=== PATIENT | male | born 1950 | race American Indian/Alaskan Native ===

== ENCOUNTER → 2017-04-27 | Outpatient (CLI) | payer OTHER ==
[~2017-04-27] MED LIST: AMOX500 PO; CEPH500 PO; HYDACE5 PO; NAPR500 PO; PRED20 PO; RXHYDACE PO; [UNRECOGNIZED DRUG - OTHER]
[2017-04-27 12:47] LABS: BASOPHILS ABSOLUTE AUTO 0.02 K/mm3 (0.00-0.23); BASOPHILS PERCENT AUTO 0 % (0-2); EOSINOPHILS ABSOLUTE AUTO 0.11 K/mm3 (0.00-0.68); EOSINOPHILS PERCENT AUTO 2 % (0-6); Hemoglobin 16.3 g/dL (13.5-17.5); IMMATURE GRAN ABSOLUTE AUTO 0.01 K/mm3 (0.00-0.10); IMMATURE GRAN PERCENT AUTO 0 % (0-1); LYMPHOCYTES ABSOLUTE AUTO 2.02 K/mm3 (0.84-5.20); LYMPHOCYTES PERCENT AUTO 32 % (21-46); MONOCYTES ABSOLUTE AUTO 0.96 K/mm3 (0.16-1.47); MONOCYTES PERCENT AUTO 15 % (4-13); Mean Corpuscular HGB 29.7 pg (26.0-34.0); Mean Corpuscular HGB Conc 34.7 g/dL (31.5-36.5); Mean Corpuscular Volume 86 fL (80-100); Mean Platelet Volume 11.8 fL (9.1-12.4); NEUTROPHILS ABSOLUTE AUTO 3.21 K/mm3 (1.96-9.15); NEUTROPHILS PERCENT AUTO 51 % (41-73); Platelet Count 265 K/mm3 (150-400); RDW Coefficient Variation 13.2 % (11.7-14.2); RDW Standard Deviation 41.2 fL (35.1-46.3); Red Blood Cell Count 5.48 M/mm3 (4.30-5.90); White Blood Cell Count 6.33 K/mm3 (4.00-11.30)
[2017-04-27 13:05] LABS: Alanine Aminotransfer (ALT/SGP 34 U/L (12-78); Alk Phos 83 U/L (40-126); Anion Gap 9 mmol/L (6-16); Aspartate Aminotrans (AST/SGOT 33 U/L (12-37); Bilirubin, Total 0.4 mg/dL (0.1-1.0); Blood Urea Nitrogen 16 mg/dL (8-24); Bun/Creatinine Ratio 10.9 (12.0-20.0); CO2, Blood 26 mmol/L (21-32); CPK Creatine Kinase 139 U/L (39-308); Calcium, Blood 9.5 mg/dL (8.5-10.1); Chloride, Blood 100 mmol/L (98-108); Creatinine, Blood 1.47 mg/dL (0.60-1.20); Free Thyroxine 0.93 ng/dL (0.70-1.60); Glomerular Filtration Rate 48 (60-); Glucose, Blood 101 mg/dL (70-99); Potassium, Blood 4.9 mmol/L (3.5-5.5); Sodium, Blood 135 mmol/L (136-145)
[2017-04-27 13:10] LABS: Troponin I <0.017 ng/mL (0.000-0.040)
== END | disposition home or self-care (01) ==
LOC: LAB EV 12:38
PROVIDERS: General Practice
DX: R55 Syncope and collapse (principal); R53.81 Other malaise
CPT/HCPCS: 80053; 82550; 84439; 84443; 84484; 85025

== ENCOUNTER 2019-12-11 01:29 | Emergency (ER) | payer OTHER ==
[~2019-12-11] VITALS: Ht 177.8 cm; Wt 76.2 kg
[2019-12-11] MEDS ORDERED: IMBRUVICA420 MG PO (01:44)
[2019-12-11 02:00] LABS: BASOPHILS ABSOLUTE AUTO 0.39 K/mm3 (0.00-0.23); BASOPHILS PERCENT AUTO 1 % (0-2); EOSINOPHILS ABSOLUTE AUTO 0.22 K/mm3 (0.00-0.68); EOSINOPHILS PERCENT AUTO 1 % (0-6); Hematocrit 46.1 % (37.0-53.0); Hemoglobin 14.7 g/dL (13.5-17.5); IMMATURE GRAN ABSOLUTE AUTO 0.07 K/mm3 (0.00-0.10); IMMATURE GRAN PERCENT AUTO 0 % (0-1); LYMPHOCYTES ABSOLUTE AUTO 37.23 K/mm3 (0.84-5.20); LYMPHOCYTES PERCENT AUTO 83 % (21-46); MONOCYTES ABSOLUTE AUTO 2.78 K/mm3 (0.16-1.47); MONOCYTES PERCENT AUTO 6 % (4-13); Mean Corpuscular HGB 29.7 pg (26.0-34.0); Mean Corpuscular HGB Conc 31.9 g/dL (31.5-36.5); Mean Corpuscular Volume 93 fL (80-100); NEUTROPHILS ABSOLUTE AUTO 4.14 K/mm3 (1.96-9.15); NEUTROPHILS PERCENT AUTO 9 % (41-73); Platelet Count 225 K/mm3 (150-400); RDW Coefficient Variation 13.5 % (11.7-14.2); RDW Standard Deviation 45.7 fL (35.1-46.3); Red Blood Cell Count 4.95 M/mm3 (4.30-5.90); White Blood Cell Count 44.83 K/mm3 (4.00-11.30)
[2019-12-11 02:12] LABS: Alanine Aminotransfer (ALT/SGP 29 U/L (12-78); Albumin, Blood 4.3 g/dL (3.4-5.0); Albumin/Globulin Ratio 1.4 (0.8-1.8); Alk Phos 91 U/L (50-136); Anion Gap 4 mmol/L (6-16); Aspartate Aminotrans (AST/SGOT 22 U/L (12-37); Bilirubin, Total 0.5 mg/dL (0.1-1.0); Blood Urea Nitrogen 16 mg/dL (8-24); CO2, Blood 30 mmol/L (21-32); Calcium, Blood 8.6 mg/dL (8.5-10.1); Chloride, Blood 106 mmol/L (98-108); Creatinine, Blood 1.23 mg/dL (0.60-1.20); Glomerular Filtration Rate >60 (60-); Glucose, Blood 93 mg/dL (70-99); Potassium, Blood 4.3 mmol/L (3.5-5.5); Sodium, Blood 140 mmol/L (136-145); Total Protein, Blood 7.3 g/dL (6.4-8.2); Troponin I <0.015 ng/mL (0.000-0.040)
== END 2019-12-11 02:54 | disposition home or self-care (01) ==
LOC: ER 01:29
PROVIDERS: Emergency Medicine
DX: R07.9 Chest pain, unspecified (principal); Z88.1 Allergy status to other antibiotic agents; Z91.041 Radiographic dye allergy status
CPT/HCPCS: 36415; 80053; 84484; 85025; 93005; 93010; 96374; 99283-25; J1885

== ENCOUNTER 2020-04-26 05:57 | Day surgery (SDC) | payer OTHER ==
[~2020-04-26] VITALS: Ht 160 cm; Wt 79.8 kg
[~2020-04-26 05:57] MED LIST changes: +ACET325 PO; +ASPI325 PO; +ATOR10 PO; +IMBRUVICA420 MG PO; +OXYC5 PO; +PRAV20 PO
[2020-04-26] MEDS ORDERED: ATOR20 PO (06:36)
--- NOTE | 2020-04-26 08:00 | NUR ---
PT BACK TO RECOVERY ROOM VIA RECLINER AFTER PROCEDCURE. DENIES PAIN OR NEEDS. RIGHT WRIST WITH TR BAND AND SPLINT IN PLACE. VSS, PT IS AWAKE AND ORIENTED POST SEDATION. CALL LIGHT IN REACH.
--- NOTE | 2020-04-26 09:30 | NUR ---
WHEN ATTEMPTING TO TAKE AIR OUT OF TR BAND, SLIGHT BLEEDING NOTED AFTER TAKING 2 CC'S OF AIR OUT. TR BAND REINFLATED, WILL ATTEMPT TO DEFLATE AGAIN IN 15-30 MINUTES.
--- NOTE | 2020-04-26 10:07 | NUR ---
RIGHT RADIAL TR BAND HAS BEEN FULLY DEFLATED. NO BLEEDING OR SWELLING AT SITE.
--- NOTE | 2020-04-26 10:45 | NUR ---
IV DC'D, CATH INTACT. PT GIVEN DC INSTRUCTIONS, VERBALIZED UNDERSTANDING. DENIES PAIN OR NEEDS, OUT TO CAR VIA WHEELCHAIR. RIGHT WRIST SITE SOFT, NON-TENDER, NO BLEEDING OR SWELLING AT TIME OF DISCHARGE
== END 2020-04-26 10:45 | disposition home or self-care (01) ==
LOC: MHTC 05:57
DX: I25.118 Atherosclerotic heart disease of native coronary artery with other forms of angina pectoris (principal); I49.3 Ventricular premature depolarization; K21.9 Gastro-esophageal reflux disease without esophagitis; E66.9 Obesity, unspecified; I12.9 Hypertensive chronic kidney disease with stage 1 through stage 4 chronic kidney disease, or unspecified chronic kidney disease; N18.9 Chronic kidney disease, unspecified; Z79.01 Long term (current) use of anticoagulants; Z68.31 Body mass index [BMI] 31.0-31.9, adult; Z85.6 Personal history of leukemia; Z86.73 Personal history of transient ischemic attack (TIA), and cerebral infarction without residual deficits
CPT/HCPCS: 76937; 93458; 99152; C1769; C1894; J1200; J1644; J1720; J2250; J3010; J7030; J7050; Q9967

== ENCOUNTER → 2021-04-11 | Outpatient (CLI) | payer OTHER ==
[~2021-04-11] MED LIST changes: +ATOR20 PO
[2021-04-11 11:23] LABS: Hematocrit 36.7 % (37.0-53.0); Hemoglobin 12.1 g/dL (13.5-17.5); Mean Corpuscular HGB 29.6 pg (26.0-34.0); Mean Corpuscular Volume 90 fL (80-100); Platelet Count 302 K/mm3 (150-400); RDW Coefficient Variation 15.2 % (11.7-14.2); RDW Standard Deviation 49.5 fL (35.1-46.3); Red Blood Cell Count 4.09 M/mm3 (4.30-5.90)
[2021-04-11 11:38] LABS: Albumin, Blood 2.7 g/dL (3.4-5.0); Bilirubin, Total 0.6 mg/dL (0.1-1.0); Bun/Creatinine Ratio 19.6 (12.0-20.0); Calcium, Blood 8.4 mg/dL (8.5-10.1); Creatinine, Blood 1.38 mg/dL (0.60-1.20); Globulin, Blood 2.8 g/dL (2.2-4.0); Potassium, Blood 5.7 mmol/L (3.5-5.5); Total Protein, Blood 5.5 g/dL (6.4-8.2)
[2021-04-11 11:45] LABS: BAND PERCENT MAN 23 % (0-8); BASOPHILS PERCENT MAN 0 % (0-2); EOSINOPHILS PERCENT MAN 0 % (0-6); LYMPHOCYTES % ATYPICAL MANUAL 1 % (0-0); LYMPHOCYTES ABSOLUTE MAN 16.19 K/mm3 (0.84-5.20); LYMPHOCYTES PERCENT MAN 56 % (21-46); MONOCYTES ABSOLUTE MAN 0.28 K/mm3 (0.16-1.47); MONOCYTES PERCENT MAN 1 % (4-13); NEUTROPHILS ABSOLUTE MAN 11.93 K/mm3 (1.96-9.15); SEG NEUTROPHILS PERCENT MAN 19 % (41-73); TOTAL CELLS COUNTED 100
[2021-04-11 11:47] LABS: White Blood Cell Count 28.42 K/mm3 (4.00-11.30)
== END ==
LOC: LAB SHORT 11:20
PROVIDERS: Family Medicine
DX: U07.1 COVID-19 (principal); J12.82 Pneumonia due to coronavirus disease 2019
CPT/HCPCS: 80053; 85025

== ENCOUNTER 2021-04-14 11:43 | Inpatient (IN) | payer MEDICARE, OTHER ==
[~2021-04-14] VITALS: Ht 167.6 cm; Wt 61.7 kg
[~2021-04-14 11:43] MED LIST changes: -ALBU2.5V5; -BUDESONIDE EC3 M5 PO; -LEVOFLOXACIN750 MG
[2021-04-14] MEDS ORDERED: ALBU2.5V5 INH (15:47)
[2021-04-14] MEDS ORDERED: LEVOFLOXACIN750 MG (15:48)
[2021-04-14] MEDS ORDERED: BUDESONIDE EC3 M5 PO (15:48)
[2021-04-14] MEDS ORDERED: PRED20 PO (15:48)
--- NOTE | 2021-04-14 18:22 | NUR ---
PATIENT ADMITTED FOR SOB/PNEUMONIA. AOX4, REPORTS INFREQUENT PRODUCTIVE COUGH, 2L NC O2. FINE CRACKLES AT LUNG BASES. NO SOB/RESPIRATORY DISTRESS NOTED. VITAL STABLE. IV FLUIDS INFUSING, IV ABX STARTED.
[2021-04-15 05:13] LABS: Hematocrit 32.2 % (37.0-53.0); Hemoglobin 10.7 g/dL (13.5-17.5); Mean Corpuscular HGB 29.2 pg (26.0-34.0); Mean Corpuscular HGB Conc 33.2 g/dL (31.5-36.5); Mean Corpuscular Volume 88 fL (80-100); Mean Platelet Volume 10.6 fL (9.1-12.4); Platelet Count 392 K/mm3 (150-400); RDW Coefficient Variation 14.8 % (11.7-14.2); RDW Standard Deviation 48.2 fL (35.1-46.3); Red Blood Cell Count 3.66 M/mm3 (4.30-5.90); White Blood Cell Count 23.35 K/mm3 (4.00-11.30)
[2021-04-15 05:34] LABS: BAND PERCENT MAN 9 % (0-8); BASOPHILS PERCENT MAN 0 % (0-2); EOSINOPHILS PERCENT MAN 0 % (0-6); LYMPHOCYTES ABSOLUTE MAN 8.63 K/mm3 (0.84-5.20); LYMPHOCYTES PERCENT MAN 37 % (21-46); MONOCYTES PERCENT MAN 0 % (4-13); NEUTROPHILS ABSOLUTE MAN 14.71 K/mm3 (1.96-9.15); SEG NEUTROPHILS PERCENT MAN 54 % (41-73); TOTAL CELLS COUNTED 100
[2021-04-15 05:46] LABS: Albumin, Blood 1.7 g/dL (3.4-5.0); Albumin/Globulin Ratio 0.4 (0.8-1.8); Bilirubin, Total 1.6 mg/dL (0.1-1.0); Bun/Creatinine Ratio 24.6 (12.0-20.0); Calcium, Blood 8.6 mg/dL (8.5-10.1); Creatinine, Blood 1.38 mg/dL (0.60-1.20); Globulin, Blood 4.3 g/dL (2.2-4.0); Magnesium, Blood 2.3 mg/dL (1.6-2.4); Phosphorus, Blood 5.5 mg/dL (2.5-4.9); Potassium, Blood 4.9 mmol/L (3.5-5.5)
[2021-04-15 15:25] LABS: Influenza A, PCR NEGATIVE (NEGATIVE); Influenza B, PCR NEGATIVE (NEGATIVE); Resp Syncytial Virus, PCR NEGATIVE (NEGATIVE)
[2021-04-15 15:34] LABS: SARS-Cov-2 (COVID-19) PCR, MMC POSITIVE (NEGATIVE)
--- NOTE | 2021-04-16 03:45 | NUR ---
SHIFT SUMMARY RT IN FOR BREATHING TX X ONE. SOLU-MEDROL GIVEN PER EMAR. AXOX 4 AND INDEPENDENT IN ROOM. SOB W/EXERTION. ON 6L O2 HF STATING 96% CONTINUOUS PULSE OXIMETRY. REPORTED BACK PAIN X ONE AND IV FENTANYL 50 MCG GIVEN. PEREZ X ONE AND TYLENOL 650 MG GIVEN PER EMAR. PIV REMAINS INTACT. LR FINISHED INFUSING X ONE. BUILDING ENERGY CONSULTANT REPORTS NSR 88. VSS/AFEBRILE. DENIES CHEST PAIN AND N/V. CALL LIGHT IN REACH. BED IN LOWEST POSITION. WILL CONTINUE TO MONITOR UNTIL DAY SHIFT NURSE ASSUMES CARE.
[2021-04-16 04:47] LABS: Hematocrit 29.6 % (37.0-53.0); Hemoglobin 9.8 g/dL (13.5-17.5); Mean Corpuscular HGB 29.3 pg (26.0-34.0); Mean Corpuscular HGB Conc 33.1 g/dL (31.5-36.5); Mean Corpuscular Volume 88 fL (80-100); Mean Platelet Volume 10.9 fL (9.1-12.4); Platelet Count 366 K/mm3 (150-400); RDW Standard Deviation 48.5 fL (35.1-46.3); Red Blood Cell Count 3.35 M/mm3 (4.30-5.90); White Blood Cell Count 20.06 K/mm3 (4.00-11.30)
[2021-04-16 05:39] LABS: BAND PERCENT MAN 17 % (0-8); BASOPHILS PERCENT MAN 0 % (0-2); EOSINOPHILS PERCENT MAN 0 % (0-6); LYMPHOCYTES ABSOLUTE MAN 6.01 K/mm3 (0.84-5.20); LYMPHOCYTES PERCENT MAN 30 % (21-46); MONOCYTES PERCENT MAN 2 % (4-13); NEUTROPHILS ABSOLUTE MAN 13.64 K/mm3 (1.96-9.15); SEG NEUTROPHILS PERCENT MAN 51 % (41-73); TOTAL CELLS COUNTED 100
--- NOTE | 2021-04-17 03:06 | NUR ---
SHIFT SUMMARY PATIENT HAD NO ACUTE CHANGES OBSERVED. AXOX 4 AND INDEPENDENT IN ROOM, SOB W/EXERTION. RT PLACED ON 7L O2 HF UP FROM 6L HF STATING 90% ON CONTINUOUS PULSE OXIMETRY. PIV REMAINS INTACT. IV ABX INFUSED. HOISTMAN REPORTS ST 111. REPORTED GENERAL PAIN AND OXYCODONE 5 MG GIVEN X ONE. VSS/AFEBRILE. PATIENT ABLE TO REST T/O SHIFT. CALL LIGHT IN REACH. BED IN LOWEST POSITION. WILL CONTINUE TO MONITOR UNTIL DAY SHIFT NURSE ASSUMES CARE.
[2021-04-17 05:04] LABS: Hematocrit 32.3 % (37.0-53.0); Hemoglobin 10.6 g/dL (13.5-17.5); Mean Corpuscular HGB 28.8 pg (26.0-34.0); Mean Corpuscular HGB Conc 32.8 g/dL (31.5-36.5); Mean Corpuscular Volume 88 fL (80-100); Platelet Count 416 K/mm3 (150-400); RDW Standard Deviation 48.1 fL (35.1-46.3); Red Blood Cell Count 3.68 M/mm3 (4.30-5.90)
[2021-04-17 05:46] LABS: Albumin, Blood 1.5 g/dL (3.4-5.0); Anion Gap 6 mmol/L (6-16); Blood Urea Nitrogen 46 mg/dL (8-24); Bun/Creatinine Ratio 30.5 (12.0-20.0); CO2, Blood 22 mmol/L (21-32); Calcium, Blood 8.8 mg/dL (8.5-10.1); Chloride, Blood 102 mmol/L (98-108); Creatinine, Blood 1.51 mg/dL (0.60-1.20); Glomerular Filtration Rate 46 (60-); Glucose, Blood 113 mg/dL (70-99); Phosphorus, Blood 4.9 mg/dL (2.5-4.9); Potassium, Blood 5.8 mmol/L (3.5-5.5); Sodium, Blood 130 mmol/L (136-145)
[2021-04-17 05:53] LABS: BAND PERCENT MAN 29 % (0-8); BASOPHILS ABSOLUTE MAN 0.21 K/mm3 (0.00-0.23); BASOPHILS PERCENT MAN 1 % (0-2); EOSINOPHILS PERCENT MAN 0 % (0-6); LYMPHOCYTES ABSOLUTE MAN 6.04 K/mm3 (0.84-5.20); LYMPHOCYTES PERCENT MAN 28 % (21-46); MONOCYTES ABSOLUTE MAN 0.21 K/mm3 (0.16-1.47); MONOCYTES PERCENT MAN 1 % (4-13); MYELOCYTE ABSOLUTE MAN 0.21 K/mm3 (0.00-0.00); MYELOCYTE PERCENT MAN 1 % (0-0); SEG NEUTROPHILS PERCENT MAN 40 % (41-73); TOTAL CELLS COUNTED 100
--- NOTE | 2021-04-17 13:47 | NUR ---
Patient arrived via med bed and on tele. He has HF at 40L 62% and sats mid 90%. He is alert and oriented and is able to communicate his needs. He has urinal at bedside and uses appropriately. He states back pain and will medicate per MAR. Dr Chan has been in room and talked with patient.
--- NOTE | 2021-04-17 15:45 | NUR ---
Patient has been resting on 40L 62% and sats M idto low 90%'s. He stated pain reduced to 3/10 since medicated per APR.
--- NOTE | 2021-04-17 17:25 | NUR ---
Patient resting with HF NC at 40L 62% and sats 94%. He has 20ga LIS infusing D5 1/2 NS at 100 ml/hr. Held dinner until awakens. No significant changes with patient.
[2021-04-18 03:31] LABS: BASOPHILS PERCENT AUTO 1 % (0-2); Hematocrit 30.1 % (37.0-53.0); LYMPHOCYTES ABSOLUTE AUTO 3.41 K/mm3 (0.84-5.20); LYMPHOCYTES PERCENT AUTO 23 % (21-46); MONOCYTES ABSOLUTE AUTO 0.19 K/mm3 (0.16-1.47); MONOCYTES PERCENT AUTO 1 % (4-13); Mean Corpuscular HGB 29.5 pg (26.0-34.0); Mean Corpuscular HGB Conc 33.2 g/dL (31.5-36.5); Mean Corpuscular Volume 89 fL (80-100); Platelet Count 382 K/mm3 (150-400); RDW Coefficient Variation 15.5 % (11.7-14.2); RDW Standard Deviation 50.1 fL (35.1-46.3); Red Blood Cell Count 3.39 M/mm3 (4.30-5.90); White Blood Cell Count 14.56 K/mm3 (4.00-11.30)
[2021-04-18 03:34] LABS: EOSINOPHILS PERCENT AUTO 0 % (0-6); IMMATURE GRAN ABSOLUTE AUTO 0.06 K/mm3 (0.00-0.10); IMMATURE GRAN PERCENT AUTO 0 % (0-1); NEUTROPHILS PERCENT AUTO 74 % (41-73)
[2021-04-18 03:55] LABS: Albumin, Blood 1.3 g/dL (3.4-5.0); Anion Gap 7 mmol/L (6-16); Blood Urea Nitrogen 50 mg/dL (8-24); Bun/Creatinine Ratio 33.8 (12.0-20.0); CO2, Blood 22 mmol/L (21-32); Chloride, Blood 102 mmol/L (98-108); Creatinine, Blood 1.48 mg/dL (0.60-1.20); Glomerular Filtration Rate 47 (60-); Glucose, Blood 151 mg/dL (70-99); Phosphorus, Blood 6.6 mg/dL (2.5-4.9); Potassium, Blood 5.7 mmol/L (3.5-5.5); Sodium, Blood 131 mmol/L (136-145)
--- NOTE | 2021-04-18 06:19 | NUR ---
On airvo overnight. Desaturation with activity to the mid 80's, slow to recover. O2 requirements increased to 45L 70% after spontaneous desaturation while sleeping. Febile through the night; see flowsheet. Medicated with tylenol PRN. Pt cooperative and very restful through the shift.
--- NOTE | 2021-04-18 08:03 | NUR ---
CARE ASSUMED OF PT AT 0700. WITHOUT EXERTIONS PT DESATURATED IN TO LOW 70%. RT AT BEDSIDE. BIPAP BEING PLACED. PT STATES HE DOES NOT WANT TO BE INTUBATED. PT'S BREATHING IS LABORED. RESP 30-40'S. PT CALM, DOES STATE HE FEELS SOB. PT'S TO BE UPDATED PER PT. 11/19 75%. PT'S SATS CAME UP OVER 90% ALMOST IMMEDIATELY. FINE CRACKLES TO BASES, WORSE ON LEFT SIDE.
--- NOTE | 2021-04-18 08:34 | NUR ---
DR ROA AND PT'S UPDATED, BOTH ARE AT BEDSIDE.
--- NOTE | 2021-04-18 10:26 | NUR ---
This [facility] CM visited the patient in his room on Sunday. Patient's and son were present. Patient was sitting up on the right side of his bed. Patient is independent at baseline in his home, had no previous dme but, is now on O2. There was an order put in by MANN WALLS to [facility] for O2 and supplies on 04/14/2021. Patients HH preference would be [facility], patient drives, manages own medications. No Needs or resources anticipated. IMM has been signed.
--- NOTE | 2021-04-18 15:46 | NUR ---
ANTIFUGAL COMPLETE. PT RESP HAVE INCREASED TO MID 40'S. PT STATES HE FEELS A LITTLE SOB. PT MOVING A LITTLE LESS AIR THAN AT 1200. RT CALLED. RT AT BEDSIDE. TEP 102.2, TYLENOL GIVEN.
--- NOTE | 2021-04-18 15:53 | NUR ---
DUO NEB GIVEN BY RT, RESP DOWN TO LOW TO MID 30'S. SATS 91%. COOL CLOTH PLACED ON FOREHEAD. BLANKETS REMOVED. PT CALM AND DOZING ON AND OFF.
--- NOTE | 2021-04-18 17:43 | NUR ---
PT REQUEST SOMETHING TO HELP HIM SLEEP, DR ROA NOTIFIED, MELATONIN ORDERED.
--- NOTE | 2021-04-18 19:15 | NUR ---
ASSUMPTION OF CARE PT CURRENTLY SLEEPING. HE WAKENS EASILY TO VERBAL STIMULI. HE IS RECEIVING D5 1/2NS AT 100ML/HR. HE IS ON BIPAP WITH SETTINGS 10/8 AND FIO2 60%. HE IS ALERT AND ORIENTED, REQUESTES UNINTERRUPTED REST TONIGHT. WILL CONTINUE TO MONITOR CLOSELY. VSS AT THIS TIME. SEE SHIFT ASSESSMENT.
[2021-04-19 04:01] LABS: Albumin, Blood 1.3 g/dL (3.4-5.0); Albumin/Globulin Ratio 0.3 (0.8-1.8); Bilirubin, Total 0.9 mg/dL (0.1-1.0); Bun/Creatinine Ratio 37.7 (12.0-20.0); Calcium, Blood 8.5 mg/dL (8.5-10.1); Creatinine, Blood 1.62 mg/dL (0.60-1.20); Globulin, Blood 4.2 g/dL (2.2-4.0); Phosphorus, Blood 7.4 mg/dL (2.5-4.9); Potassium, Blood 4.8 mmol/L (3.5-5.5); Total Protein, Blood 5.5 g/dL (6.4-8.2)
[2021-04-19 04:03] LABS: BASOPHILS ABSOLUTE AUTO 0.06 K/mm3 (0.00-0.23); BASOPHILS PERCENT AUTO 0 % (0-2); Hematocrit 29.1 % (37.0-53.0); Hemoglobin 9.5 g/dL (13.5-17.5); Mean Corpuscular HGB 28.6 pg (26.0-34.0); Mean Corpuscular HGB Conc 32.6 g/dL (31.5-36.5); Mean Corpuscular Volume 88 fL (80-100); Mean Platelet Volume 10.8 fL (9.1-12.4); Platelet Count 264 K/mm3 (150-400); RDW Coefficient Variation 15.2 % (11.7-14.2); RDW Standard Deviation 48.3 fL (35.1-46.3); Red Blood Cell Count 3.32 M/mm3 (4.30-5.90)
[2021-04-19 04:07] LABS: EOSINOPHILS ABSOLUTE AUTO 0.01 K/mm3 (0.00-0.68); EOSINOPHILS PERCENT AUTO 0 % (0-6); IMMATURE GRAN ABSOLUTE AUTO 0.06 K/mm3 (0.00-0.10); IMMATURE GRAN PERCENT AUTO 0 % (0-1); LYMPHOCYTES ABSOLUTE AUTO 2.97 K/mm3 (0.84-5.20); LYMPHOCYTES PERCENT AUTO 22 % (21-46); MONOCYTES ABSOLUTE AUTO 0.15 K/mm3 (0.16-1.47); MONOCYTES PERCENT AUTO 1 % (4-13); NEUTROPHILS ABSOLUTE AUTO 10.35 K/mm3 (1.96-9.15); NEUTROPHILS PERCENT AUTO 76 % (41-73)
--- NOTE | 2021-04-19 06:02 | NUR ---
SHIFT SUMMARY PT HAS SLEPT THROUGH MOST OF NIGHT. HE REMAINS ON BIPAP WITH SETTINGS UNCHANGED; 11/19 WITH FIO2 60%. HE HAS REPOSITIONED HIMSELF THROUGHT THE NIGHT AND HAS DENIED ASSISTANCE. HE USES THE URINAL INDEPENDENTLY. VS HAVE BEEN STABLE THROUGHOUT SHIFT. WILL REPORT TO ONCOMING RN.
--- NOTE | 2021-04-19 06:20 | NUR ---
UPDATE PT REQUESTS TO SWITCH TO AIRVO THIS MORNING. CALL PLACED TO RT WHO WILL BE HERE SHORTLY TO EVALUATE AND TRANSITION TO AIRVO.
--- NOTE | 2021-04-19 07:48 | NUR ---
CARE OF PT ASSUMED AT 0700. PT AWAKE SITTING UP IN BED ON AIRVO 55L/78%. PT STATES HE FEELS BETTER THIS AM AND SLEPT WELL LAST NIGHT. LUNGS SOUND BETTER TODAY W MORE AIR MOVEMENT. FINE CRACKLES NOTED TO RLL. SATS 97%, RESP 20'S. D51/2NS AT 100CC/HR
--- NOTE | 2021-04-19 09:18 | NUR ---
COVID ISOLATION REMOVED PER DR ROA. DR ROA AT BEDSIDE, FULL UPDATE GIVEN.
--- NOTE | 2021-04-19 17:52 | NUR ---
PT ABLE TO STAY ON AIRVO T/O SHIFT AND DID NOT NEED BIPAP. FIO2 TITRATED DOWN TO 70%. PT GIVEN OXYCODONE FOR BACK PAIN ONCE. PT ABLE TO EAT SMALL AMTS OF FOOD, POOR APPETITE OVERALL. FINE CRACKLES REMAIN TO RLL. BP TRENDING UP.
--- NOTE | 2021-04-19 19:15 | NUR ---
ASSUMPTION OF CARE PT RESTING WITH EYES CLOSED, WAKENS TO SOUND. HE REMAINS ALERT AND ORIENTED. HE IS ON AIRVO 55LPM WITH FIO2 70%. SPO2 >94% AND RR BETWEEN 20-26. HE DENIES SOB AT THIS TIME. HE CONTINUES TO USE THE URINAL INDEPENDENTLY. VSS AT THIS TIME, SEE SHIFT ASSESSMENT.
--- NOTE | 2021-04-20 05:37 | NUR ---
SHIFT SUMMARY PT HAS SLEPT THROUGH MOST OF NIGHT. HE REMAINS ON AIRVO AT 55LPM WITH FIO2 70%. HE HAD ONE DUONEB THIS SHIFT. C/O CHRONIC BACK PAIN NEAR BEGINNING OF SHIFT, MEDICATED PER EMAR. HE CONTINUES TO RECEIVE D5 1/2NS AT 100ML/HR. HE IS ALERT/ORIENTED AND HAS BEEN REPOSITIONING SELF THROUGHOUT NIGHT. HE USES THE URINAL INDEPENDENTLY AND VOIDS DARK YELLOW/SHANICE URINE. VS HAVE BEEN STABLE THROUGHOUT THE SHIFT. WILL REPORT TO ONCOMING RN.
--- NOTE | 2021-04-20 08:07 | NUR ---
ASSUME CARE: I assumed care of this patient at 0700.
--- NOTE | 2021-04-20 08:51 | NUR ---
ID: This RN spoke with infection control to verify that pt does not need to be on isolation precautions for covid or sputum findings.
[2021-04-20 09:05] LABS: Hematocrit 29.9 % (37.0-53.0); Hemoglobin 9.9 g/dL (13.5-17.5); Mean Corpuscular HGB 28.9 pg (26.0-34.0); Mean Corpuscular HGB Conc 33.1 g/dL (31.5-36.5); Mean Corpuscular Volume 87 fL (80-100); Mean Platelet Volume 11.3 fL (9.1-12.4); Platelet Count 275 K/mm3 (150-400); RDW Coefficient Variation 15.2 % (11.7-14.2); RDW Standard Deviation 48.7 fL (35.1-46.3); Red Blood Cell Count 3.43 M/mm3 (4.30-5.90); White Blood Cell Count 11.68 K/mm3 (4.00-11.30)
[2021-04-20 09:22] LABS: Bun/Creatinine Ratio 40.4 (12.0-20.0); Calcium, Blood 8.5 mg/dL (8.5-10.1); Creatinine, Blood 1.46 mg/dL (0.60-1.20); Potassium, Blood 4.8 mmol/L (3.5-5.5)
--- NOTE | 2021-04-20 10:25 | NUR ---
UPDATE: Pt resting with labored breathing. He was asked he wanted to use BIPAP while napping. He declined and states, "I feel okay right now."
--- NOTE | 2021-04-20 18:47 | NUR ---
SHIFT SUMMARY: Pt on airvo throughout the day and tolerated it well. He did go on nasal BIPAP for a short time while napping with the encouragement of his . Pt declined bed bath today. He was up in the chair for a few hours; lung sounds improved after. One dose of lasix was given this morning with 1875mls of urine out. Family visted throughout the day and pt's daughter was updated via phone.
--- NOTE | 2021-04-20 20:00 | NUR ---
ASSUMED CARE OF PT AT 1915. REPORT RECEIVED. PT PRESENTS IN BED WITH AERVO 55 L/M FIO2 70 PERCENT. PT BREATHING TACHYPNEIC. IS AT BEDSIDE WITH FAMILY. BOTH PATIENT AND BOTH RESPIRATORY THERAPIST. DISCUSSED PLAN WITH PT, , AND RT INDIRA THAT DR ROA WANTS PATIENT TO WEAR BIPAP THIS NIGHT. PT IN AGREEMENT. WILL REVIEW CHART AND PLAN OF CARE FOR THIS PT.
--- NOTE | 2021-04-21 | NUR ---
HAVE CALLED DR ROA CONCERNING PT'S INCREASED BACK PAIN EVEN AFTER 5 MG OXYCODONE, AND 650 MG TYLENOL. ORDER FOR INCREASE IN OXYCODONE DOSE. PT MEDICATED WITH SECOND DOSE OF OXYCODONE WHICH PT STATES IS HELPFUL. PT HAS OCCASSIONAL DRY COUGH. PT STATES HE IS ABLE AT TIMES TO EXPECTORATE CLEAR SECRETIONS. WILL CONTINUE TO MONITOR PT.
[2021-04-21 03:35] LABS: BASOPHILS ABSOLUTE AUTO 0.03 K/mm3 (0.00-0.23); BASOPHILS PERCENT AUTO 0 % (0-2); EOSINOPHILS PERCENT AUTO 0 % (0-6); Hematocrit 28.2 % (37.0-53.0); Hemoglobin 9.2 g/dL (13.5-17.5); Mean Corpuscular HGB 28.7 pg (26.0-34.0); Mean Corpuscular HGB Conc 32.6 g/dL (31.5-36.5); Mean Corpuscular Volume 88 fL (80-100); Mean Platelet Volume 11.3 fL (9.1-12.4); Platelet Count 255 K/mm3 (150-400); RDW Coefficient Variation 14.8 % (11.7-14.2); RDW Standard Deviation 47.6 fL (35.1-46.3); Red Blood Cell Count 3.21 M/mm3 (4.30-5.90)
[2021-04-21 03:36] LABS: IMMATURE GRAN ABSOLUTE AUTO 0.05 K/mm3 (0.00-0.10); IMMATURE GRAN PERCENT AUTO 1 % (0-1); LYMPHOCYTES ABSOLUTE AUTO 1.82 K/mm3 (0.84-5.20); LYMPHOCYTES PERCENT AUTO 19 % (21-46); MONOCYTES PERCENT AUTO 2 % (4-13); NEUTROPHILS PERCENT AUTO 78 % (41-73)
[2021-04-21 03:52] LABS: Bun/Creatinine Ratio 41.4 (12.0-20.0); Calcium, Blood 8.1 mg/dL (8.5-10.1); Creatinine, Blood 1.45 mg/dL (0.60-1.20); Potassium, Blood 5.5 mmol/L (3.5-5.5)
--- NOTE | 2021-04-21 06:32 | NUR ---
PT HAS WORN BIPAP THROUGHOUT THE NIGHT. HAS SINCE BEEN CHANGED TO AERVO WITH 55 L/M FLOW AND 71 PERCENT FIO2. PT MAINTAINS SATURATIONS > 90 PERCENT WITH THIS. WILL CONTINUE TO MONITOR ABILITY TO TITRATE FIO2 DOWN IF ABLE. PT HAS VOIDED Q.S. THIS NIGHT. HAS BEEN TURNING HIMSELF IN BED. MEDICATED WITH OXYCODONE AND TYLENOL FOR COMPLAINT OF BACK PAIN. PT REVEALS THAT HE HAS HAD FRACTURES IN HIS BACK TWICE IN HIS LIFE. PT STATES THIS HAS BEEN HELPFUL TO CONTROL PAIN. WILL CONTINUE TO MONITOR PT, AND WILL REPORT OFF TO ONCOMING ANGIE
--- NOTE | 2021-04-21 07:27 | NUR ---
ASSUME CARE: I have assumed care of this patient.
--- NOTE | 2021-04-21 18:43 | NUR ---
SHIFT SUMMARY: Steve was on airvo for most of the day. He was placed on bipap while napping intermittantly. FiO2 was titrated down to 60%. Pt declined bed bath; he was cleaned up with gown changed by HAUL TRUCK DRIVER. He was encoraged to get up in chair again today, but was too fatigued. Pt able to reposition himself in bed indepandantly. His has been bringing him food to eat which has helped his appetite some. Two doses of PRN oxycodone and tylenol given for back pain. Family at bedside and supportive throughout the day.
--- NOTE | 2021-04-21 20:00 | NUR ---
ASSUMED CARE OF PATIENT AT 1915. REPORT RECEIVED AT BEDSIDE. PT PRESENTS IN BED. ALERT AND ORIENTED. PLEASANT AND COOPERATIVE WITH CARE AND ASSESSMENT. PT STATES THAT HE IS FATIQUED FROM DAY. DISCUSSED PLAN TO HAVE PT WEAR BIPAP THIS NIGHT. PT VOICES AGREEMENT. PT'S FAMILY IN ROOM. - NANO IN ROOM. SHE ASKS SOME QUESTIONS. THOSE ANSWERED. WILL REVIEW CHART AND PLAN OF CARE FOR THIS PT.
--- NOTE | 2021-04-21 23:34 | NUR ---
PT CURRENTLY WEARING BIPAP MASK. PT HAS BEEN MEDICATED WITH 10 MG OXYCODONE FOR COMPLAINTS OF BACK PAIN 07/22. PT STATES THIS IS AFFECTIVE TO RELIEVE PAIN. PT ALSO STATES THAT HE HAS BEEN EATING BETTER TODAY. PER PT'S REQUEST, DID MEDICATE PT WITH 5 MG MELATONIN. WILL CONTINUE TO MONITOR PT.
[2021-04-22 03:49] LABS: BASOPHILS ABSOLUTE AUTO 0.03 K/mm3 (0.00-0.23); BASOPHILS PERCENT AUTO 0 % (0-2); EOSINOPHILS PERCENT AUTO 0 % (0-6); Hematocrit 28.6 % (37.0-53.0); Hemoglobin 9.6 g/dL (13.5-17.5); IMMATURE GRAN ABSOLUTE AUTO 0.08 K/mm3 (0.00-0.10); IMMATURE GRAN PERCENT AUTO 1 % (0-1); LYMPHOCYTES PERCENT AUTO 21 % (21-46); MONOCYTES ABSOLUTE AUTO 0.18 K/mm3 (0.16-1.47); MONOCYTES PERCENT AUTO 2 % (4-13); Mean Corpuscular HGB 28.7 pg (26.0-34.0); Mean Corpuscular HGB Conc 33.6 g/dL (31.5-36.5); Mean Corpuscular Volume 86 fL (80-100); Mean Platelet Volume 11.4 fL (9.1-12.4); NEUTROPHILS PERCENT AUTO 76 % (41-73); Platelet Count 345 K/mm3 (150-400); RDW Coefficient Variation 14.5 % (11.7-14.2); RDW Standard Deviation 45.5 fL (35.1-46.3); Red Blood Cell Count 3.34 M/mm3 (4.30-5.90); White Blood Cell Count 11.79 K/mm3 (4.00-11.30)
[2021-04-22 04:12] LABS: Bun/Creatinine Ratio 45.5 (12.0-20.0); Calcium, Blood 8.3 mg/dL (8.5-10.1); Creatinine, Blood 1.23 mg/dL (0.60-1.20); Potassium, Blood 5.5 mmol/L (3.5-5.5)
--- NOTE | 2021-04-22 05:44 | NUR ---
PT HAS VOIDED Q.S. THIS NIGHT. HAS BEEN WEARING BIPAP THROUGHOUT THE NIGHT. 11/19 WITH FIO2 60 PERCENT. NO FURTHER COMPLAINTS OF BACK PAIN. WILL CONTINUE TO MONITOR PT, AND WILL REPORT OFF TO ONCOMING RN.
--- NOTE | 2021-04-22 18:51 | NUR ---
NO SIGNIFICANT CHANGES THIS SHIFT. ON AIRVO 55L 60-80%. DESATS WITH EXERTION BUT RECOVERS WITHIN A COUPLE MINUTES. PT SPENT MOST OF THE MORNING IN THE CHAIR. PRONED FOR A FEW HOURS THIS AFTERNOON. FAMILY AT BEDSIDE. NEW SPUTUM CULTURE SENT. TREATED FOR BACK PAIN X2, SEE APR.
[2021-04-23 03:42] LABS: Hematocrit 29.9 % (37.0-53.0); Hemoglobin 10.1 g/dL (13.5-17.5); Mean Corpuscular HGB 28.9 pg (26.0-34.0); Mean Corpuscular HGB Conc 33.8 g/dL (31.5-36.5); Mean Corpuscular Volume 86 fL (80-100); Mean Platelet Volume 11.2 fL (9.1-12.4); Platelet Count 432 K/mm3 (150-400); RDW Coefficient Variation 13.9 % (11.7-14.2); RDW Standard Deviation 43.5 fL (35.1-46.3); Red Blood Cell Count 3.49 M/mm3 (4.30-5.90); White Blood Cell Count 14.65 K/mm3 (4.00-11.30)
[2021-04-23 04:03] LABS: Alanine Aminotransfer (ALT/SGP 80 U/L (12-78); Albumin, Blood 1.6 g/dL (3.4-5.0); Albumin/Globulin Ratio 0.4 (0.8-1.8); Alk Phos 404 U/L (50-136); Anion Gap 7 mmol/L (6-16); Aspartate Aminotrans (AST/SGOT 44 U/L (12-37); Bilirubin, Total 1.2 mg/dL (0.1-1.0); Blood Urea Nitrogen 52 mg/dL (8-24); CO2, Blood 24 mmol/L (21-32); Calcium, Blood 8.3 mg/dL (8.5-10.1); Chloride, Blood 106 mmol/L (98-108); Creatinine, Blood 1.13 mg/dL (0.60-1.20); Globulin, Blood 3.9 g/dL (2.2-4.0); Glomerular Filtration Rate >60 (60-); Glucose, Blood 89 mg/dL (70-99); Magnesium, Blood 2.2 mg/dL (1.6-2.4); Phosphorus, Blood 3.5 mg/dL (2.5-4.9); Potassium, Blood 5.8 mmol/L (3.5-5.5); Sodium, Blood 137 mmol/L (136-145); Total Protein, Blood 5.5 g/dL (6.4-8.2)
[2021-04-23 04:27] LABS: BAND PERCENT MAN 3 % (0-8); BASOPHILS PERCENT MAN 0 % (0-2); EOSINOPHILS PERCENT MAN 0 % (0-6); LYMPHOCYTES ABSOLUTE MAN 2.93 K/mm3 (0.84-5.20); LYMPHOCYTES PERCENT MAN 20 % (21-46); METAMYELOCYTE ABSOLUTE MAN 0.14 K/mm3 (0.00-0.00); METAMYELOCYTE PERCENT MAN 1 % (0-0); MONOCYTES ABSOLUTE MAN 0.43 K/mm3 (0.16-1.47); MONOCYTES PERCENT MAN 3 % (4-13); NEUTROPHILS ABSOLUTE MAN 11.13 K/mm3 (1.96-9.15); SEG NEUTROPHILS PERCENT MAN 73 % (41-73); TOTAL CELLS COUNTED 100
--- NOTE | 2021-04-23 06:29 | NUR ---
Patient per assessment. Refused Bipap for most of the night, stating that he is not comfortable enough to sleep on the bipap. On Airvo 55L 65-75%. Desaturation with activity, would require a brief increase in O2. Pt would slowly recover; still refused bipap and proning. Consistently tachypenic. Early in the morning pt tired out, agreed to bipap. 60% 11/19. tolerating well, will still desat with activity.
--- NOTE | 2021-04-23 07:34 | NUR ---
CARE ASSUMED OF PT AT 0700. PT HAD TAKEN OFF BIPAP, THEN CALLED RN TO PLACE AIRVO. SATS 70%, PT'S BREATHING LABORED, RESP 30'S. SKIN DUSKY. AIRVO PLACED W 02 AT 100% UNTIL PT RECOVERED. SATS SLOWLY CAME UP OVER 5MIN. PT THEN DESATURATED AGAIN WHEN ATTEMPTING TO USE URINAL. RT CALLED, UPDRAFT GIVEN. PT MUCH MORE RELAXED NOW, SATS 93% ON 60L/65%. GOOD AIR MOVEMENT, FINE CRACKLES TO RLL.
--- NOTE | 2021-04-23 08:30 | NUR ---
PT DEPRESSED AND DISCOURAGED. PT STATES HE IS "THINKING ABOUT GOING HOME TO ". I ASKED ALVIN IF THERE WAS ANYTHING I OR WE COULD DO TO HELP HIM FEEL BETTER, HE DIDNT HAVE ANY SUGGESTIONS. I SUGGESTED THAT SPEAKING W PALLIATIVE CARE MIGHT BE HELPFUL, HE WAS OPEN TO THIS. PT IS HAVING LOWER BACK PAIN 08/21 BUT DECLINES PAIN MEDICATION BECAUSE HE DOESNT "WANT TO GO TO SLEEP", NON NARCOTIC OPTIONS GIVEN TO PT, HE DECLINES AT THIS TIME
--- NOTE | 2021-04-23 09:29 | NUR ---
DR DEAN IN TO SEE PT. DR CORBIN UPDATED PT'S . ANTIDEPRESSANT TO BE STARTED WELL TORADOL FOR BACK PAIN. PALLIATIVE CARE WILL SEE PT THIS AM. DR CORBIN GIVEN FULL UPDATE.
--- NOTE | 2021-04-23 10:10 | NUR ---
Initial Pal Care visit and case conference note: Case conferenced with pt's RN, Dr Mejia, Dr Rodriguez. Met with pt at bedside. His and son were present and with his permmission discussed how he is feeling and what we can do to encourage him. I had been called to room by pt's RN because pt was verbalizing that he just wanted to go home and have hospice care rather than cont to fight with resp failure due to weeks s/p covid and now wyatt pneumonia. Pt has Medical hx of CLL, GERD, chronic back pain due to previous injury. Pt is currently stable and requiring slightly less respiratory support than yesterday. Dr Rodriguez visited before I did and ordered toradol for chronic back pain that interfere's with pt's ability to prone as much as requested. also started pt on Remeron for depression and to stimulate appetite. Pt has other pain medication but does not like SE and declines taking at times. Plan of care reviewed with pt. I encouraged him to continue fighting while knowing it would be a long haul to get back to his previous LOF and quality of life. He wants to be home [place]. 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 I offered a bread icer visit for spiritual encouragement. Sirena was in favor of this but Hua declined. He appears receptive to encouragement from me and Dr Mejia, who rounded at the end of my visit. Pt has been on Elavil in the past and did not tolerate it. He was glad Elavil was not the antidepressant ordered. We reviewed increasing activity, even in bed and Dr Mejia ordered PT/OT to start mobilizing, strengthening with pt. He reports back pain, dyspnea & anxiety with any exertion. He is alternating between bipap and airvo. Encouraged pt to increase proning time, once back pain better controlled. Sirean plans to help him with that today also. Acknowledged pt's profound fatigue, grief, sadness and feeling discouraged to validate feelings. Pal Care to visit daily and discuss with spiritual care on Sunday to request additional interactive staff visits and encouragement to patient. Report to RN and Dr Rodriguez on my visit.
--- NOTE | 2021-04-23 11:06 | NUR ---
PT PLACED ON FAR LEFT SIDE(MODIFIED PRONE), BIPAP PLACED. PT STATES TORADOL HAS HELPED W PAIN. LASIX 20MG IV GIVEN PER DR CORBIN.
--- NOTE | 2021-04-23 18:28 | NUR ---
PT DID WELL OVERALL TODAY. GOOD URINE OUTPUT W LASIX, APPETITE IMPROVED. BETTER PAIN CONTROL W TORADOL, IMPROVED MOOD. UP IN CHAIR FOR ABOUT 3 HRS. PT THUY AIRVO 45L/55% T/O SHIFT W A COUPLE HOURS ON BIPAP FOR NAP. POWERGLIDE PLACED TO LIS. PT'S AND SON AT BEDSIDE FOR ENTIRE SHIFT.
--- NOTE | 2021-04-24 04:53 | NUR ---
ASSUMED CARE: AT START OF SHIFT, PT RESTING COMFORTABLY ON HFNC 45L 65%. COMPLAINS OF BACK PAIN 07/22- SLIGHTLY IMPROVED WITH RECENT OXYCODONE. A/O X 4. APPEARS DEPRESSED & WITHDRAWN. GUTIERREZ. LUNGS DIM, L>R, FINE CRACKLES IN BASES. SATS >90% SINUS RHYTHM, SBPS SLIGHTLY ELEVATED IN 15OS, OTHERWISE WNL. PULSES STRONG THROUGHOUT. AFEBRILE NO COMPLAINTS OF CONSTIPATION, LOW APPETITE W/ POOR PO INTAKE. NO SKIN ISSUES.
--- NOTE | 2021-04-24 04:55 | NUR ---
SHIFT SUMMARY: PT ON BIPAP FOR NEBS, OTHERWISE ON HFNC THROUGHOUT NIGHT- SAME SETTINGS. PT SLEPT COMFORTABLY ALL NIGHT. CONTINUES TO APPEAR DEPRESSED & WITHDRAWN. MINIMAL URINE OUTPUT OVERNIGHT W/ POOR PO INTAKE. NO BM. SINUS RHYTHM/SINUS KAYLENE 50S-80S. BPS WNL. AFEBRILE. SATS >92 EXCEPT WITH EXERTION WHEN HE DESATS TO LOW 80S BUT RECOVERS QUICKLY.
--- NOTE | 2021-04-24 11:45 | NUR ---
PT IS MORE SLEEPY TODAY THAN USUAL. GOT TO CHAIR WITH ONE PERSON ASSIST. FIO2 INCREASED FOR TRANSFER. PT DESATS AND IS ABLE TO RECOVER WITH REST BUT CONTINUED TO NEED INCREASE IN FIO2. PT IS DOZING TO SLEEP IN CHAIR HE IS ALSO WANTING TO EAT. AT PT'S SIDE. PT WANTED TO STAY IN CHAIR BUT INCREASING O2 DEMANDS ARE WORRISOME. GOT PT BACK TO BED AND TRIED TO GET HIM TO WEAR BIPAP BUT HE REFUSED. EVENTUALLY AFTER RESTING IN BED AIRVO SETTINGS RETURNED TO PRIOR SETTINGS 45L 55%. DR. DEAN AND DR. CORBIN PRESENT IN ROOM WHILE THIS TOOK PLACE. CONCERNED ABOUT SPASMS IN STOMACH FROM [place]. S[place]OT STOPPED AND SUPPOSITORY GIVEN. ABD DISTENDED.
--- NOTE | 2021-04-24 13:40 | NUR ---
CALLED DR. DEAN ABOUT HYPERTENSION. HE WILL PUT ORDERS IN.
--- NOTE | 2021-04-24 17:07 | NUR ---
Supportive visit made to pt and after review of EMR and case conf with pt's RN. Two grown children at bedside also. Pt slept through most of my visit but I spoke with him briefly when Sirena stepped out to make a call. Sirena feels pt experienced increased BP and somnolence as a reaction to Remeron and it was d/c'd after one dose. Time spent listening and supporting. Pt reports improved pain management. He looks profoundly fatigued lying in bed with airvo in place. He woke easily, demonstrates conservation of energy and breath. I did not stay long due to his fatigue and work of breathing. Spent additional time outside of room with Sirena. Plan to visit again tomorrow.
--- NOTE | 2021-04-24 18:21 | NUR ---
SUMMARY PT A/O X4. LETHARGIC TODAY. REMERON WAS D/C'D. GOT TO CHAIR ONCE THEN GOT TO BSC AND HAD A BM. PT GETS SOB WITH ANY EXERTION. DESATS INTO LOW 80'S AND HAS TO STOP FREQUENTLY TO CATCH BREATH AND LET SATS RECOVER. PT WAS HYPERTENSIVE THIS AFTERNOON. DR. DEAN ORDERED VASOTEC PRN. AFTER ONE DOSE BP HAS BEEN WNL. THIS EVENING PT IS SLEEPING IN BED AFTER HAVING A FEW VISITORS. NO SIGN OF DISTRESS, SUPPORTIVE AT BEDSIDE.
--- NOTE | 2021-04-24 21:48 | NUR ---
ASSUMED CARE: AT START OF SHIFT PT IS SITTING UP IN BED EATING DINNER. PT DESATS TO LOW 80S W/ EACH BITE, BUT APPROPRIATELY TAKES TIME TO RECOVER. ON AIRVO @ 45L, 60%. A/O, GUTIERREZ, C/O BACK PAIN 08/21- 5MG OXYCODONE GIVEN, PERRLA 3MM. SINUS RHYTHM 60S-80S, BP WNL, PULSES STRONG THROUGHOUT. TEMP 99.1. LUNGS DIM, L>R. OCCASIONAL COUGH. PT DECLINES BIPAP. PT VOIDING USING URINAL. LBM TODAY. PT CONTINUES TO BE MINIMALLY INTERACTIVE & APPEARS DEPRESSED & WITHDRAWN.
[2021-04-25 05:07] LABS: BASOPHILS ABSOLUTE AUTO 0.04 K/mm3 (0.00-0.23); BASOPHILS PERCENT AUTO 0 % (0-2); EOSINOPHILS PERCENT AUTO 0 % (0-6); Hematocrit 27.1 % (37.0-53.0); Mean Corpuscular HGB 29.3 pg (26.0-34.0); Mean Corpuscular HGB Conc 33.2 g/dL (31.5-36.5); Mean Corpuscular Volume 88 fL (80-100); Mean Platelet Volume 10.9 fL (9.1-12.4); Platelet Count 489 K/mm3 (150-400); RDW Coefficient Variation 13.9 % (11.7-14.2); RDW Standard Deviation 44.5 fL (35.1-46.3); Red Blood Cell Count 3.07 M/mm3 (4.30-5.90); White Blood Cell Count 15.77 K/mm3 (4.00-11.30)
[2021-04-25 05:15] LABS: IMMATURE GRAN ABSOLUTE AUTO 0.14 K/mm3 (0.00-0.10); IMMATURE GRAN PERCENT AUTO 1 % (0-1); LYMPHOCYTES ABSOLUTE AUTO 3.57 K/mm3 (0.84-5.20); LYMPHOCYTES PERCENT AUTO 23 % (21-46); MONOCYTES ABSOLUTE AUTO 0.25 K/mm3 (0.16-1.47); MONOCYTES PERCENT AUTO 2 % (4-13); NEUTROPHILS ABSOLUTE AUTO 11.77 K/mm3 (1.96-9.15); NEUTROPHILS PERCENT AUTO 75 % (41-73)
[2021-04-25 05:28] LABS: Anion Gap 4 mmol/L (6-16); Blood Urea Nitrogen 52 mg/dL (8-24); Bun/Creatinine Ratio 44.8 (12.0-20.0); CO2, Blood 26 mmol/L (21-32); Calcium, Blood 8.2 mg/dL (8.5-10.1); Chloride, Blood 106 mmol/L (98-108); Creatinine, Blood 1.16 mg/dL (0.60-1.20); Glomerular Filtration Rate >60 (60-); Glucose, Blood 125 mg/dL (70-99); Magnesium, Blood 2.3 mg/dL (1.6-2.4); Phosphorus, Blood 3.9 mg/dL (2.5-4.9); Potassium, Blood 5.9 mmol/L (3.5-5.5); Sodium, Blood 136 mmol/L (136-145)
--- NOTE | 2021-04-25 05:53 | NUR ---
SHIFT SUMMARY: PT SLEPT WELL, CONTINUES TO BE SOMEWHAT WITHDRAWN. SR/SB 50S-100S. SBP <170. TMAX 99.1 TEMPORAL. PROLONGED RECOVERY TIME W/ DESATURATIONS. PT REFUSED BIPAP OVERNIGHT. AIRVO SETTINGS INCREASED TO 45L 70%.
--- NOTE | 2021-04-25 14:00 | NUR ---
Case conf note: Contacted [facility] Care gravity prospecting operator this am to request visit and f/u daily if possible. Attempted to visit this afternoon and Aircraft Line Assembler Steve at bedside visiting with pt/. Case conferenced with nursing and PT. Will defer visits to Aircraft Line Assembler and therapy today to avoid wearing pt out further. Plan to cont to follow from a distance and visit when indicated.
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
--- NOTE | 2021-04-25 17:41 | NUR ---
SHIFT SUMMARY PT IS ALERT AND ORIENTEDx4, FLAT AFFECT. PT EXPRESSED HE WANTS TO GO HOME AND IS TIRED OF BEING IN THE HOSPITAL. PT IS MORE RELAXED WHEN FAMILY IS AROUND. TODAY IT WAS BROUGHT TO OUR ATTENTION THAT THE PT IS HAVING VISUAL HALLUCINATIONS AND SEEING FAMILY MEMBERS THAT ARE NOT PRESENT IN THE ROOM. DR CORBIN WAS MADE AWARE AND IS CONCERNED THE STEROIDS ARE THE CAUSE. PLACED ORDER FOR DECREASED DOSE. THIS MORNING PT REQUIRED INCREASED O2 SUPPORT ON AIRVO AFTER MINIMAL MOVEMENT IN BED. PT THROUGH OUT THE DAY WOULD SWITCH BETWEEN AIRVO AND CPAP. IN THE AFTERNOON PT WAS ABLE TO GET UP TO CHAIR WITH OT AND RECOVERED FROM HIS SPO2 DROP RELATIVELY QUICKLY. MOST RECENT SETTINGS AIRVO 45L 60%, CPAP 8 60%. VITALS HAVE BEEN STABLE. PT REMAINS IN SINUS RHYTHM.
--- NOTE | 2021-04-25 21:23 | NUR ---
ASSUMED CARE: PT AWAKE, A/O X 4, MORE INTERACTIVE THAN LAST NIGHT. WAS GLAD TO HAVE WORKED W/ PT/OT TODAY. C/O CHRONIC BACK PAIN 06/21. ALSO C/O NUMBNESS TO ANTERIOR L THIGH X 2 DAYS. SINUS RHYTHM, STRONG PULSES THROUGHOUT. TEMP 99.4. LUNGS CLEAR W/ DIM BASES. AIRVO 45L 60%. SPO2 <89%. POOR PO INTAKE, POOR APPETITE.
[2021-04-26 03:03] LABS: BASOPHILS ABSOLUTE AUTO 0.04 K/mm3 (0.00-0.23); BASOPHILS PERCENT AUTO 0 % (0-2); EOSINOPHILS PERCENT AUTO 0 % (0-6); Hematocrit 26.3 % (37.0-53.0); Hemoglobin 8.9 g/dL (13.5-17.5); IMMATURE GRAN ABSOLUTE AUTO 0.16 K/mm3 (0.00-0.10); IMMATURE GRAN PERCENT AUTO 1 % (0-1); LYMPHOCYTES ABSOLUTE AUTO 3.38 K/mm3 (0.84-5.20); LYMPHOCYTES PERCENT AUTO 23 % (21-46); MONOCYTES ABSOLUTE AUTO 0.17 K/mm3 (0.16-1.47); MONOCYTES PERCENT AUTO 1 % (4-13); Mean Corpuscular HGB 29.8 pg (26.0-34.0); Mean Corpuscular HGB Conc 33.8 g/dL (31.5-36.5); Mean Corpuscular Volume 88 fL (80-100); Mean Platelet Volume 10.9 fL (9.1-12.4); NEUTROPHILS ABSOLUTE AUTO 11.11 K/mm3 (1.96-9.15); NEUTROPHILS PERCENT AUTO 75 % (41-73); Platelet Count 508 K/mm3 (150-400); RDW Coefficient Variation 13.8 % (11.7-14.2); Red Blood Cell Count 2.99 M/mm3 (4.30-5.90); White Blood Cell Count 14.86 K/mm3 (4.00-11.30)
[2021-04-26 03:21] LABS: Magnesium, Blood 2.1 mg/dL (1.6-2.4)
[2021-04-26 03:26] LABS: Bun/Creatinine Ratio 38.2 (12.0-20.0); Calcium, Blood 8.3 mg/dL (8.5-10.1); Creatinine, Blood 1.23 mg/dL (0.60-1.20); Phosphorus, Blood 4.1 mg/dL (2.5-4.9); Potassium, Blood 6.7 mmol/L (3.5-5.5)
--- NOTE | 2021-04-26 06:28 | NUR ---
SHIFT SUMMARY: PT A/O OVERNIGHT. SLEPT MORE RESTLESSLY THAN PREVIOUS NIGHT. SEEMED MORE INTERACTIVE AT START OF SHIFT, BUT THIS AM WHEN HIS POWERGLIDE STOPPED DRAWING & HIS POTASSIUM LEVEL WAS HIGH, HE STATED "EVERYTHING'S GOING THE WRONG WAY" AND APPEARED DEFEATED. PT WAS REASSURED THAT IVS REGULARLY STOP DRAWING, & THAT WE WERE TREATING HIS ELEVATED POTASSIUM LEVEL. PT REMAINED ON CPAP AFTER 2300, PEEP 8, FIO2 75% (PER PT'S REQUEST). STATES HE FEELS BETTER ON CPAP W/ HIGHER FIO2. AIRVO SETTINGS REMAIN 45L, FIO2 60%.
[2021-04-26 09:11] LABS: Albumin, Blood 1.9 g/dL (3.4-5.0); Anion Gap 5 mmol/L (6-16); Blood Urea Nitrogen 45 mg/dL (8-24); Bun/Creatinine Ratio 36.9 (12.0-20.0); CO2, Blood 26 mmol/L (21-32); Calcium, Blood 8.8 mg/dL (8.5-10.1); Chloride, Blood 103 mmol/L (98-108); Creatinine, Blood 1.22 mg/dL (0.60-1.20); Glomerular Filtration Rate 59 (60-); Glucose, Blood 99 mg/dL (70-99); Phosphorus, Blood 4.5 mg/dL (2.5-4.9); Potassium, Blood 6.1 mmol/L (3.5-5.5); Sodium, Blood 134 mmol/L (136-145)
--- NOTE | 2021-04-26 15:19 | NUR ---
Pal Care note: Case conferenced with PT, RN, dietitian today re: current status, plan of care, s/s, concerns, strategy for encouraging pt/family. Long supportive visit with today. She asked about end goal. Reviewed that we are working toward goal of getting resp support needs lowered to point that it could be replicated in the home. Pt's #1 wish is to get home. See PT visit note re: HH PT/OT vs IRU. When I went to ICU to visit pt, he was sleeping. RN states he is more comfortable and able to rest this afternoon. I did not disturb him. Dietitian joined my conversation with and helped identify fruits and vegetable with lower K+ that would be good to bring in from home. Pt's K+ has been elevated and measures being taken to decrease K+ per Dr's orders. concerned or was asked to consider food being brought in that may have contributed to elevated K+. Pt is vegan and concerned about quality of food pt receiving and wanted to cont to bring in organic fresh food that he is more used to. Pal care to continue supportive visits to pt/. verbalized that Manager Of Environmental Services's visit yesterday was helpful and that Setve was receptive. They welcome encouragement from all angles/diciplines.
[2021-04-26 16:52] LABS: Albumin, Blood 1.8 g/dL (3.4-5.0); Anion Gap 4 mmol/L (6-16); Blood Urea Nitrogen 45 mg/dL (8-24); Bun/Creatinine Ratio 34.6 (12.0-20.0); CO2, Blood 27 mmol/L (21-32); Chloride, Blood 102 mmol/L (98-108); Glomerular Filtration Rate 55 (60-); Glucose, Blood 162 mg/dL (70-99); Phosphorus, Blood 4.7 mg/dL (2.5-4.9); Sodium, Blood 133 mmol/L (136-145)
--- NOTE | 2021-04-26 18:33 | NUR ---
SHIFT SUMMARY PT REMAINS ALERT AND ORIENTED X4, WITHDRAWN BUT COOPERATIVE WITH CARE. INDEPENDENT WITH REPOSITIONING AND USING URINAL. PT DESATS TO MID 70'S WITH VERY MINIMAL EXERTION. REMAINS BIPAP/AIRVO DEPENDENT. 2300 URINARY OUTPUT. AT BEDSIDE T/O SHIFT. WILL REPORT TO ONCOMING NURSE.
--- NOTE | 2021-04-26 21:16 | NUR ---
ASSUMED CARE: PT UP TO COMMODE AT START OF SHIFT ATTEMPTING BOWEL MOVEMENT- UNSUCCESSFUL. VERY POOR O2 RESERVE- ON CPAP PEEP 8 FIO2 75%. LUNGS COARSE. PT A/O, ANXIOUS, GUTIERREZ. BACK PAIN & L THIGH NUMBNESS PERSISTS. SINUS TACH 100S W/ OCCASIONAL BIGEMINY. BPS WNL. PALPABLE PULSES THROUGHOUT. AFEBRILE. CONTINUES TO HAVE POOR PO INTAKE- LIMITED FURTHER BY LOW POTASSIUM VEGAN DIET. REFUSING COLACE. PT VERY HESITANT ABOUT HAVING BM. USING URINAL W/ ADEQUATE UOP.
[2021-04-27 05:28] LABS: BASOPHILS ABSOLUTE AUTO 0.06 K/mm3 (0.00-0.23); BASOPHILS PERCENT AUTO 0 % (0-2); EOSINOPHILS PERCENT AUTO 0 % (0-6); Hemoglobin 9.4 g/dL (13.5-17.5); IMMATURE GRAN ABSOLUTE AUTO 0.26 K/mm3 (0.00-0.10); IMMATURE GRAN PERCENT AUTO 1 % (0-1); LYMPHOCYTES ABSOLUTE AUTO 5.21 K/mm3 (0.84-5.20); LYMPHOCYTES PERCENT AUTO 26 % (21-46); MONOCYTES ABSOLUTE AUTO 0.27 K/mm3 (0.16-1.47); MONOCYTES PERCENT AUTO 1 % (4-13); Mean Corpuscular HGB 29.3 pg (26.0-34.0); Mean Corpuscular HGB Conc 33.6 g/dL (31.5-36.5); Mean Corpuscular Volume 87 fL (80-100); Mean Platelet Volume 10.8 fL (9.1-12.4); NEUTROPHILS ABSOLUTE AUTO 14.35 K/mm3 (1.96-9.15); NEUTROPHILS PERCENT AUTO 71 % (41-73); Platelet Count 557 K/mm3 (150-400); RDW Coefficient Variation 13.9 % (11.7-14.2); RDW Standard Deviation 43.8 fL (35.1-46.3); Red Blood Cell Count 3.21 M/mm3 (4.30-5.90); White Blood Cell Count 20.15 K/mm3 (4.00-11.30)
[2021-04-27 05:53] LABS: Bun/Creatinine Ratio 34.5 (12.0-20.0); Calcium, Blood 8.5 mg/dL (8.5-10.1); Creatinine, Blood 1.42 mg/dL (0.60-1.20); Magnesium, Blood 2.3 mg/dL (1.6-2.4); Phosphorus, Blood 5.8 mg/dL (2.5-4.9); Potassium, Blood 5.9 mmol/L (3.5-5.5)
--- NOTE | 2021-04-27 06:36 | NUR ---
SHIFT SUMMARY: PT VERY NAUSEATED OVERNIGHT. ZOFRAN GIVEN & REGLAN ORDERED & GIVEN W/O EFFECT. PHENERGAN ORDERED & GIVEN WITH MODERATE EFFECT. POTASSIUM LEVEL RESULTED LAST NIGHT @ 6.1. PER MD: 10U INSULIN REGULAR IV X 1, 25G DEXTROSE IV X1, 25G ALBUTEROL NEB X 1, 10G LOKELMA PO GIVEN. POTASSIUM LEVEL IN AM LABS IMPROVED @ 5.9. NAUSEA WORSENED SIGNIFICANTLY AFTER LOKELMA ADMINISTRATION. PT COTINUES TO DESAT SIGNIFICANTLY W/ MINIMAL EXERTION. PER PT'S , PT REQUESTED THAT SHE TAKE HIM HOME EARLY THIS MORNING. THEIR GOAL IS TO GET HIS O2 REQUIREMENTS AT 10LPM OR BELOW SO HE CAN RECOVER AT HOME. CURRENTLY PT IS ON CPAP W/ PEEP 8 FIO2 60% OR AIRVO 45L 60%. PT'S HEART RATE MORE ELEVATED OVERNIGHT THAN PAST FEW NIGHTS- SINUS RHYTHM/ SINUS TACH 90S-130S. BPS WNL. NO BM LAST NIGHT AFTER KAYEXALATE.
--- NOTE | 2021-04-27 09:00 | NUR ---
Assumed Care. AOx4, withdrawn, fatiqued, reports did not have a good night. Did not sleep well. Reports severe pain to the left leg up to the hip area. Fentanyl was given. Reports increase in nausea t/o the night. Just had phenergan which has helped some. Titi need for any further meds is tolerating mild nausea. Did not want to eat breakfast, only took in some water with am meds. IVF NS infusing. Sinus on monitor running occational PVC's. HR can by tachycardic at times. Abdomin distended firm, nausea, very poor appetite, no bm noted for yesterday. Patient has tried but has not been successful. Dark yellow urine output. Slightest movement causes him to desat even to the 70's. has arrived and is currently in the room. Dr. Russell already in to see the patient. Will continue to monitor, call light in reach.
[2021-04-27 10:31] LABS: Albumin, Blood 1.9 g/dL (3.4-5.0); Anion Gap 4 mmol/L (6-16); Blood Urea Nitrogen 48 mg/dL (8-24); CO2, Blood 30 mmol/L (21-32); Calcium, Blood 8.2 mg/dL (8.5-10.1); Chloride, Blood 101 mmol/L (98-108); Creatinine, Blood 1.41 mg/dL (0.60-1.20); Glomerular Filtration Rate 50 (60-); Glucose, Blood 118 mg/dL (70-99); Phosphorus, Blood 5.3 mg/dL (2.5-4.9); Potassium, Blood 5.8 mmol/L (3.5-5.5); Sodium, Blood 135 mmol/L (136-145)
--- NOTE | 2021-04-27 11:30 | NUR ---
MD's to the : Dr. Russell and Dr. Rodriguez currently talking with and the patient in regards to honoring the patient wishes to return home and how this might be acheived. Please see MD notes for further information. Pallative care has also stopped by to talk with patient and family.
--- NOTE | 2021-04-27 15:54 | NUR ---
Spiritual care visit conducted. Patient is lying inbed and alert. Sirena and his boys are bedside. Pt tells me how rough things have been and Sirena talks about the markers that they are pleased about. Patient is strong in his Quaker Christine and so I recite scriptures to remind pt of God's love and involvement in his struggle and the strength that is found in the God and the promises found in the Bible. Pt is exhausted mentally, emotionally and spiritually. It shows in his face, his resigned attitude and in what he is not saying. Patient does appear to be uplifted by our conversation but it appears as if the internal struggle remains. I will continue to remain available to patient and family.
[2021-04-27 16:22] LABS: Albumin, Blood 1.8 g/dL (3.4-5.0); Anion Gap 5 mmol/L (6-16); Blood Urea Nitrogen 49 mg/dL (8-24); Bun/Creatinine Ratio 34.3 (12.0-20.0); CO2, Blood 27 mmol/L (21-32); Calcium, Blood 7.5 mg/dL (8.5-10.1); Chloride, Blood 104 mmol/L (98-108); Creatinine, Blood 1.43 mg/dL (0.60-1.20); Glomerular Filtration Rate 49 (60-); Glucose, Blood 155 mg/dL (70-99); Potassium, Blood 5.7 mmol/L (3.5-5.5); Sodium, Blood 136 mmol/L (136-145)
--- NOTE | 2021-04-27 17:39 | NUR ---
Pt has has an increase in pvc's with in the last several hours. He is currently sleeping. Informed Dr. Russell who ordered a stat BNP. Sent to lab. informed who was concerned as well.
[2021-04-27 18:01] LABS: Bun/Creatinine Ratio 35.5 (12.0-20.0); Calcium, Blood 7.4 mg/dL (8.5-10.1); Creatinine, Blood 1.41 mg/dL (0.60-1.20); Potassium, Blood 5.8 mmol/L (3.5-5.5)
--- NOTE | 2021-04-27 18:11 | NUR ---
SHIFT SUMMARY: AOx4, very withdrawn, fatiqued and not feeling well today. Reports some numbness in the left upper thigh area which also has been causing him some pain. Been chasing pain today as he does not like to take meds when family is here it appears therefore allow the pain to rise. Educated him on at least taking the PO meds to stay on top. ANTONIETTA hoffman was on CPAP this am settings 8/65%, later he was switched to airvo with settings 45L/50% which was adjusted up and down depending on demand. No cough noted. Continues to desat with slightlest movement. Can drop all the way to 70% with use of BSC. Currently back on CPAP and resting comfortably on 8/50%. Sinus to Sinus tach on monitor, rate 80-110's. BP WNL except for when he is in pain or getting up. Increase in PVC's this afternoon, Dr. Russell was made aware, recheck in potassium completed. Down to 5.8. Abdomin distended, firm, hypoactive BT, nausea off and on all day, poor appetite, did not eat anything today. very little fluid intake. Gave suppository and MOM with no results. Urine is dark yellow with low output. Skin wnl. Continues to have NS at 125ml/hr. X-ray showed slight improvement. Dr. Russell, Dr. Rodriguez, and pallative care all by to see family and the patient. Discussions were initiated on possibly sending the patient home as he wants to go home. Please see their notes for further details. has been at bedside all day along with their boys. Will report to oncoming shift. Call light remains in reach.
[2021-04-28 04:34] LABS: BASOPHILS ABSOLUTE AUTO 0.05 K/mm3 (0.00-0.23); BASOPHILS PERCENT AUTO 0 % (0-2); EOSINOPHILS PERCENT AUTO 0 % (0-6); Hematocrit 22.8 % (37.0-53.0); Hemoglobin 7.4 g/dL (13.5-17.5); IMMATURE GRAN ABSOLUTE AUTO 0.21 K/mm3 (0.00-0.10); IMMATURE GRAN PERCENT AUTO 1 % (0-1); LYMPHOCYTES ABSOLUTE AUTO 4.68 K/mm3 (0.84-5.20); LYMPHOCYTES PERCENT AUTO 25 % (21-46); MONOCYTES ABSOLUTE AUTO 0.41 K/mm3 (0.16-1.47); MONOCYTES PERCENT AUTO 2 % (4-13); Mean Corpuscular HGB 29.4 pg (26.0-34.0); Mean Corpuscular HGB Conc 32.5 g/dL (31.5-36.5); Mean Corpuscular Volume 91 fL (80-100); Mean Platelet Volume 10.6 fL (9.1-12.4); NEUTROPHILS ABSOLUTE AUTO 13.08 K/mm3 (1.96-9.15); NEUTROPHILS PERCENT AUTO 71 % (41-73); Platelet Count 431 K/mm3 (150-400); RDW Coefficient Variation 13.8 % (11.7-14.2); RDW Standard Deviation 45.6 fL (35.1-46.3); Red Blood Cell Count 2.52 M/mm3 (4.30-5.90); White Blood Cell Count 18.43 K/mm3 (4.00-11.30)
[2021-04-28 04:51] LABS: Albumin, Blood 1.8 g/dL (3.4-5.0); Anion Gap 3 mmol/L (6-16); Blood Urea Nitrogen 52 mg/dL (8-24); Bun/Creatinine Ratio 37.1 (12.0-20.0); CO2, Blood 29 mmol/L (21-32); Calcium, Blood 7.5 mg/dL (8.5-10.1); Chloride, Blood 106 mmol/L (98-108); Glomerular Filtration Rate 50 (60-); Glucose, Blood 130 mg/dL (70-99); Phosphorus, Blood 4.5 mg/dL (2.5-4.9); Sodium, Blood 138 mmol/L (136-145)
--- NOTE | 2021-04-28 05:26 | NUR ---
SHIFT SUMMERY. PT REMAINS AA&OX4 AND CO SOB AND LEFT THIGH PAIN. PAIN MEDICATIONS DISCUSSED WITH DR. CASTILLO, WHO ORDERED AN INCREASE IN THE FREQUENCY OF THE PRN FENTANYL. CRITICAL LAB RESULT OF K+ OF 6.O RECIEVED FROM LAB AT 0430. DISSCUSSED WITH [facility] AND DR. NELSON. ORDERS RECIVED, SEE eMAR. PT CONTUNUES WITH HFNC @40L FiO2 70-95% DEPENDING ON ACTIVITY. PT CONTINUES TO DROP SpO2 TO THE 70-80'S WITH SLIGHT EXERTION IN BED, SUCH EATING OR USING THE URINAL.
--- NOTE | 2021-04-28 08:54 | NUR ---
ASSUMED CARE REPORT FROM CARLI ADAMS AT 0700. PT WAKES c VERBAL STIMULI. A&O X3. ANSWERS QUESTIONS APPROPRIATELY. FOLLOWS COMMANDS. FLAT AFFECT. REPORTS GOOD SLEEP LAST NOC. DENIES PAIN, SOB OR OTHER SYMPTOMS. AIRVO AT 40L/70%. LUNGS DIM THROUGHOUT. NO PRODUCTIVE COUGH. NSR, RATE 70'S. BP STABLE. 1+EDEMA TO BLE, 1+ TO RUE. CALL LIGHT IN REACH. WILL CONTINUE TO MONITOR.
[2021-04-28 10:33] LABS: Albumin, Blood 1.6 g/dL (3.4-5.0); Albumin/Globulin Ratio 0.5 (0.8-1.8); Bilirubin, Total 0.5 mg/dL (0.1-1.0); Bun/Creatinine Ratio 36.7 (12.0-20.0); Calcium, Blood 7.3 mg/dL (8.5-10.1); Creatinine, Blood 1.39 mg/dL (0.60-1.20); Globulin, Blood 3.2 g/dL (2.2-4.0); Potassium, Blood 5.8 mmol/L (3.5-5.5); Total Protein, Blood 4.8 g/dL (6.4-8.2)
--- NOTE | 2021-04-28 11:03 | NUR ---
pt anxious today wanting to go home. Advised will care career technical education teacher [place]enank to him about his oxygen. Will see if they can send [facility] rep to speak with him. Review of tpt in rounding.
[2021-04-28 16:10] LABS: Hematocrit 24.2 % (37.0-53.0)
[2021-04-28 16:49] LABS: Albumin/Globulin Ratio 0.6 (0.8-1.8); Bilirubin, Direct 0.2 mg/dL (0.0-0.3); Bilirubin, Indirect 0.4 mg/dL (0.1-0.7); Bilirubin, Total 0.6 mg/dL (0.1-1.0); Globulin, Blood 3.6 g/dL (2.2-4.0); Total Protein, Blood 5.6 g/dL (6.4-8.2)
--- NOTE | 2021-04-28 16:59 | NUR ---
SHIFT SUMMARY NO ACUTE CHANGES THIS SHIFT. PT ON AIRVO ENTIRE SHIFT, 40L/55-80% BASED UPON EXERTION. DESATS c MINIMAL EXERTION. UNABLE TO WORK c PT/OT D/T FATIGUE AND DESATURATION. LUNGS DIM THROUGHOUT. IVF D/C'D THIS SHIFT, DIRUESED, 2800 ML CLEAR YELLOW URINE OUT. SR, RATE 80'S. BP STABLE. POOR APPETITE. WILL CONTINUE TO MONITOR UNTIL REPORT TO ONCOMING NURSE.
--- NOTE | 2021-04-28 19:30 | NUR ---
PT REPORT RECEIVED. PT AA&O4 AND STATES THAT HE IS PAINFUL IN HIS BACK AND LEFT THIGH BUT HE DOES NOT WANT PAIN MEDICATION AT THIS TIME. PT'S CHEIF COMPLAINT AT THIS TIME IS NAUSEA. MD CALLED AND ORDER FOR TUMS PRN RECEIVED. PT CONTINUES TO SHOW FREQUENT PVC'S, WITH OCASIONAL TRANSIENT VENTRICULAR BIGEMINY. WILL CONTUNUE TO MONITOR.
[2021-04-28 23:02] LABS: Magnesium, Blood 2.6 mg/dL (1.6-2.4)
[2021-04-28 23:04] LABS: Bun/Creatinine Ratio 32.9 (12.0-20.0); Calcium, Blood 8.6 mg/dL (8.5-10.1); Creatinine, Blood 1.55 mg/dL (0.60-1.20)
--- NOTE | 2021-04-29 00:30 | NUR ---
MD ORDERED IV INSULIN, DEXTROSE 25G AND AN ALBUTEROL NEB DUE TO K+ OF 6.0. PT REFUSES TO TAKE ANY MEDICATIONS AT THIS TIME. HE STATES: "I WAS NOT ON ANY MEDICATIONS WHEN I CAME INTO THE HOSPITAL". THE REASON FOR THE MEDICATIONS ORDERED WERE EXPLAINED TO THE PT AND HE CONTINUES TO REFUSE ORDERED MEDICAITONS, INCLUDING SCHEDULED SQ HEPARIN AND CRESEMBA. SITUATION DISCUSED WITH CHARGE NURSE.
[2021-04-29 05:11] LABS: BASOPHILS ABSOLUTE AUTO 0.02 K/mm3 (0.00-0.23); BASOPHILS PERCENT AUTO 0 % (0-2); EOSINOPHILS PERCENT AUTO 0 % (0-6); Hematocrit 21.2 % (37.0-53.0); Hemoglobin 6.8 g/dL (13.5-17.5); IMMATURE GRAN ABSOLUTE AUTO 0.16 K/mm3 (0.00-0.10); IMMATURE GRAN PERCENT AUTO 1 % (0-1); LYMPHOCYTES ABSOLUTE AUTO 3.35 K/mm3 (0.84-5.20); LYMPHOCYTES PERCENT AUTO 25 % (21-46); MONOCYTES ABSOLUTE AUTO 0.24 K/mm3 (0.16-1.47); MONOCYTES PERCENT AUTO 2 % (4-13); Mean Corpuscular HGB 29.7 pg (26.0-34.0); Mean Corpuscular HGB Conc 32.1 g/dL (31.5-36.5); Mean Corpuscular Volume 93 fL (80-100); Mean Platelet Volume 10.9 fL (9.1-12.4); NEUTROPHILS ABSOLUTE AUTO 9.79 K/mm3 (1.96-9.15); NEUTROPHILS PERCENT AUTO 72 % (41-73); Platelet Count 350 K/mm3 (150-400); RDW Standard Deviation 46.5 fL (35.1-46.3); Red Blood Cell Count 2.29 M/mm3 (4.30-5.90); White Blood Cell Count 13.56 K/mm3 (4.00-11.30)
[2021-04-29 05:43] LABS: Magnesium, Blood 2.6 mg/dL (1.6-2.4)
--- NOTE | 2021-04-29 05:45 | NUR ---
PT WAS INITIALLY VERY UN COMFORTABLE WITH COMPLAINTS OF NAUSEA AND BACK AND LEFT UPPER LEG PAIN THAT HAS BEEN PERSISTANT. PT HAS BEEN RESISTANT TO TAKING MEDICATION AND HAD REFUSED TO TAKE REGLAN THIS SHIFT, BUT DID AGREE TO TAKE TUMS AND 25 mcg OF FENTANYL. MD WAS CALLED AT 2330 DUE TO FREQUENT AND AT TIMES BIJEMINAL PVC'S, BMP AND MAG LEVEL WAS ORDERED AND K+ WAS FOUND TO BE 6.0. IV INSULIN 10 U, ALONG WITH 25 G OF DEXTROSE. PT REFUSED THE INSULIN AND DEXTROSE, ALONG WITH THE OTHER MEDICATIONS THAT WERE SCHEDULED AT 0000. K+ WAS NOTED TO BE 6.3 ON AM LABS. PT STATED THAT HE DOES NOT WANT TO TAKE FURTHER INSULIN AND DEXTROSE WITHOUT FIRST PERSONALY SPEAKING WITH A PROVIDER. DR. NELSON WAS NOTIFIED OF THE SITUATION AND DOES NOT WANT TO TREAT AT THIS TIME. PT DOES STATE LESS DYSPNEA IN THE LATER PART OF THIS SHIFT, WELL LESS PAIN AND NAUSEA.
[2021-04-29 05:52] LABS: Albumin, Blood 1.8 g/dL (3.4-5.0); Albumin/Globulin Ratio 0.5 (0.8-1.8); Bilirubin, Total 0.5 mg/dL (0.1-1.0); Bun/Creatinine Ratio 32.7 (12.0-20.0); Calcium, Blood 8.1 mg/dL (8.5-10.1); Creatinine, Blood 1.53 mg/dL (0.60-1.20); Globulin, Blood 3.3 g/dL (2.2-4.0); Phosphorus, Blood 5.2 mg/dL (2.5-4.9); Potassium, Blood 6.3 mmol/L (3.5-5.5); Total Protein, Blood 5.1 g/dL (6.4-8.2)
--- NOTE | 2021-04-29 07:34 | NUR ---
ASSUME CARE: I assumed care of this patient at 0710.
--- NOTE | 2021-04-29 09:00 | NUR ---
UPDATE: Pt declining to take many of his medications this morning. He states that he would like to discuss possible causes for hyperkalemia with provider. Dr Mejia was notified.
--- NOTE | 2021-04-29 16:35 | NUR ---
IN-HOUSE TRANSFER/SHIFT SUMMARY: Pt successfull trialed on 6L high flow nasal cannula and tolerated well. He was transitioned back to Airvo for humidification. Pt worked with both PT and OT today. He was up in chair for short time; he continues to experience significant desaturations with exertion. This morning pt was declining several of his medications. This RN discussed bowel care medications and pt's complaints of constipation. He was encouraged to take a stool softener. Pt agreed on docusate as the others upset his stomach. He opted for a fleets enema, though that only helped him pass some hard stool balls. Soap suds enema was discussed. Heparin was discontinued as pt disliked having to receive so many subcutaneous injections; lovenox was initiated. Gonsalo consulted for pt's hyperkalemia. Bumex was started and HCTZ discontinued. 24 hour urine ordered and pt placed on 1L/day fluid restriction. Pt transferred to PCU via wheelchair by EBONY. Report given to PCU nurse and questions answered.
--- NOTE | 2021-04-29 17:22 | NUR ---
TRANSFER Pt arrived from the ICU. He has multiple family members at the bedside with him. He is a/o x 4 with no c/o. He has some dyspea on excertion but no acute distress and is currently on the AIRVO at 40/[address] Solares with sats in the 's. Pt's is requesting that we start the ordered soap dwain enema burton but dinner is here now so we will let him eat dinner first. The pt is able to make his needs known and has his call light and personal items in reach.
[2021-04-29] MEDS ORDERED: MORP15ER PO (21:07)
--- NOTE | 2021-04-29 21:25 | NUR ---
CALLED DR CASTILLO REGARDING PO PAIN MEDICATION. PT AND STATE THAT HE TAKES THIS MEDICATION PRN BECAUSE OF CHRONIC PAIN.
[2021-04-30 03:59] LABS: BASOPHILS ABSOLUTE AUTO 0.03 K/mm3 (0.00-0.23); BASOPHILS PERCENT AUTO 0 % (0-2); EOSINOPHILS PERCENT AUTO 0 % (0-6); Hematocrit 23.8 % (37.0-53.0); IMMATURE GRAN ABSOLUTE AUTO 0.15 K/mm3 (0.00-0.10); IMMATURE GRAN PERCENT AUTO 1 % (0-1); LYMPHOCYTES ABSOLUTE AUTO 3.98 K/mm3 (0.84-5.20); LYMPHOCYTES PERCENT AUTO 29 % (21-46); MONOCYTES ABSOLUTE AUTO 0.18 K/mm3 (0.16-1.47); MONOCYTES PERCENT AUTO 1 % (4-13); Mean Corpuscular HGB 29.7 pg (26.0-34.0); Mean Corpuscular HGB Conc 33.6 g/dL (31.5-36.5); Mean Corpuscular Volume 89 fL (80-100); Mean Platelet Volume 10.9 fL (9.1-12.4); NEUTROPHILS ABSOLUTE AUTO 9.62 K/mm3 (1.96-9.15); NEUTROPHILS PERCENT AUTO 69 % (41-73); Platelet Count 370 K/mm3 (150-400); RDW Coefficient Variation 13.8 % (11.7-14.2); Red Blood Cell Count 2.69 M/mm3 (4.30-5.90); White Blood Cell Count 13.96 K/mm3 (4.00-11.30)
[2021-04-30 04:21] LABS: Albumin, Blood 2.2 g/dL (3.4-5.0); Anion Gap 6 mmol/L (6-16); Blood Urea Nitrogen 53 mg/dL (8-24); Bun/Creatinine Ratio 35.8 (12.0-20.0); CO2, Blood 29 mmol/L (21-32); Calcium, Blood 8.8 mg/dL (8.5-10.1); Chloride, Blood 98 mmol/L (98-108); Creatinine, Blood 1.48 mg/dL (0.60-1.20); Glomerular Filtration Rate 47 (60-); Glucose, Blood 135 mg/dL (70-99); Magnesium, Blood 2.2 mg/dL (1.6-2.4); Phosphorus, Blood 5.6 mg/dL (2.5-4.9); Potassium, Blood 5.2 mmol/L (3.5-5.5); Sodium, Blood 133 mmol/L (136-145)
--- NOTE | 2021-04-30 05:56 | NUR ---
SHIFT SUMMARY PT IS ALERT AND ORIENTED. PT DENIES CHEST PAIN/PRESSURES. VITALS HAVE BEEN STABLE. PT'S 02 DEMANDS HAVE INCREASED FROM 40L 40% FI02 TO 40L 55% FIO2. PT HAS ASKED FOR THIS INCREASE WHEN USING THE URINAL AT THE BEDSIDE AND ASKED FOR IT TO BE LEFT AT THOSE SETTING. PT DOES LOOK TO BE HAVING A HARD TIME CATCHING BREATH WITH ACTIVITY. 24 HR URINE IS STILL BEING COLLECT. PT HAS FOLLOWED FLUID RESTRICTIONS. PT HAS BEEN REPORTING PAIN AND HAS BEEN MEDICATED PER EMAR. THIS NURSE ASKED PT WHAT HE TAKES AT HOME PER REPORT OF CHRONIC PAIN, PT STATED THAT HE TAKES MS CONTIN 15MG, PER PHARMACY WE NEED TO VERIFY MEDICATION SINCE IT IS NOT IN FILE. PT STATED THAT HE WILL ASK IN THE MORNING TO EITHER BRING IN BOTTLE OR TAKE A PICTURE OF MEDICATION INFO AND INSTRUCTIONS. CALL LIGHT IS WITHIN REACH.
[2021-04-30 11:33] LABS: Protein, Urine Quantitative 13.2 mg/dL (0.0-11.9)
--- NOTE | 2021-04-30 16:49 | NUR ---
SHIFT SUMMARY Pt is a/o x 4 and has had no c/o pain today. He continues on the AIRVO @ 35/34 with sats in the 90's. He does continue to desat while using the urinal or getting up to the chair. He is up in the chair now with his at the bedside and appears to be in much better spirits. Dr Brush saw him this morning and made some changes to his meds as shown on the emar. His 24 hour urine collection was completed this morning and Dr Brush said he could be done with the fluid restriction. He has a better appetite today and his brought a smoothie and some other foods that he likes from home and he did well with those. He has been anpping on and off throughout the day. He is able to make his needs known and is up visiting with his family now.
[2021-05-01 04:05] LABS: Hematocrit 24.6 % (37.0-53.0); Hemoglobin 8.2 g/dL (13.5-17.5)
[2021-05-01 04:22] LABS: Albumin, Blood 2.2 g/dL (3.4-5.0); Anion Gap 4 mmol/L (6-16); Blood Urea Nitrogen 46 mg/dL (8-24); Bun/Creatinine Ratio 31.9 (12.0-20.0); CO2, Blood 31 mmol/L (21-32); Calcium, Blood 8.4 mg/dL (8.5-10.1); Chloride, Blood 99 mmol/L (98-108); Creatinine, Blood 1.44 mg/dL (0.60-1.20); Glomerular Filtration Rate 49 (60-); Glucose, Blood 108 mg/dL (70-99); Phosphorus, Blood 4.5 mg/dL (2.5-4.9); Potassium, Blood 4.4 mmol/L (3.5-5.5); Sodium, Blood 134 mmol/L (136-145)
--- NOTE | 2021-05-01 06:03 | NUR ---
SHIFT SUMMARY PT IS ALERT AND ORIENTED. THERE HAVE BEEN NO ACUTE CHANGES IN PT T/O THE NIGHT. PT DENIES CHEST PAIN. REPORTS FEELING SOB WHEN MOVING OR USING URINAL. PT IS ON HI FLOW 35L 34%FIO2 WITH SATS ABOVE 92%. PT'S PAIN HAS IMPROVED. HEAT AND ICE THERAPY WELL REPOSITIONING HAVE BEEN OFFERED BUT DECLINED. HAS BEEN MEDICATED ONCE THIS SHIFT WITH ORDERED MED. PT WOULD LIKE A LONG ACTING PO MED. HE STS MS CONTIN IS WHAT HE USES AT HOME PRN. VERIFICATION IS NEEDED. PT IS ABLE TO USE HIS URINAL IN BED. HE IS ABLE TO MAKE NEEDS KNOWN. CALL LIGHT IS WITHIN REACH.
--- NOTE | 2021-05-01 17:17 | NUR ---
SHIFT SUMMARY Pt is a/o x 4 with no c/o pain today. He has been fatigued and had a few visitors today so he has been attempting to nap in between visits. He has been working with RT on titrating his O2 rate and between the AIRVO and high flow NC and has been doing well on both. He gets SOB while eating or repositioning but can tolerate the NC while at rest between 8-10 LPM.The AIRVO is at 35/34. His appetite is still poor but he does make an effort to eat as much as he can. He is using the urinal at the bedside. His has visited today and is updated. He is resting now and has his call light in reach.
--- NOTE | 2021-05-01 20:58 | NUR ---
CARE ASSUMPTIOM PT IS AXO X4 AND COMMUNICATING APPROPRIATELY. PT'S IS AT THE BEDSIDE. PT'S O2 SATS >92% ON AIRVO 30L AND 39% FIO2. PT IS SLIGHTLY TACHYPNEIC ALTHOUGH HE HAD JUST RETURNED TO BED FROM THE BSC. PT REPORTS CONTINUED CONSTIPATION BUT WANTS TO WAIT UNTIL THE AM FOR A SUPPOSITORY, PT GIVEN STOOL SOFTENER PER EMAR. PT'S VSS AND TELE SHOWING SR 90'S ALTHOUGH THE PT HAS ST HIGH 145 WHEN HE WAS UP USING THE BSC. PT LYING IN BED AT THIS TIME DENYING ANY FURTHER NEEDS.
[2021-05-02 03:42] LABS: Hematocrit 25.2 % (37.0-53.0); Hemoglobin 8.3 g/dL (13.5-17.5)
[2021-05-02 04:02] LABS: Albumin, Blood 2.3 g/dL (3.4-5.0); Anion Gap 4 mmol/L (6-16); Blood Urea Nitrogen 43 mg/dL (8-24); Bun/Creatinine Ratio 30.5 (12.0-20.0); CO2, Blood 33 mmol/L (21-32); Calcium, Blood 8.7 mg/dL (8.5-10.1); Chloride, Blood 99 mmol/L (98-108); Creatinine, Blood 1.41 mg/dL (0.60-1.20); Glomerular Filtration Rate 50 (60-); Glucose, Blood 91 mg/dL (70-99); Magnesium, Blood 1.9 mg/dL (1.6-2.4); Phosphorus, Blood 3.4 mg/dL (2.5-4.9); Sodium, Blood 136 mmol/L (136-145)
--- NOTE | 2021-05-02 06:28 | NUR ---
VICE PRESIDENT QUALITY SUMMARY PT IS AXO X4 AND COMMUNICATING APPROPRIATELY. PT HAS MAINTAINED O2 SATS >92% ON AIRVO 30L 39% FIO2. PT REPORTED PAIN IN HIS LEFT THIGH AT THE START OF THE SHIFT, MEDICATED PER EMAR W RELIEF. PT SLEPT COMFORTABLY FOR MOST OF THE SHIFT W CALL LIGHT WITHIN REACH. WILL REPORT TO ONCOMING RN.
--- NOTE | 2021-05-02 18:03 | NUR ---
ASSUMED CARE AT 0700. A/A/OX4 ON AIRVO AT START OF SHIFT. 02 DECREASED TO 3L NC DURING SHIFT, SATS 100% WHILE SLEEPING, 90% WHEN AWAKE AND MOVING. REPOSITIONS SELF IN BED, WORKED WITH PT/OT TODAY, SLEEPS DURING DAY STATES WAS UP ALL NIGHT. NO ACUTE MEDICAL CHANGES, WILL CONTINUE TO MONITOR AND TREAT UNTIL CHANGE OF SHIFT.
--- NOTE | 2021-05-02 20:12 | NUR ---
CARE ASSUMPTION PT IS AXO X4 AND COMMUNICATING APPROPRIATELY. PT'S O2 SATS >92% ON 3L NC. PT TACHYPNEIC BUT DOES NOT APPEAR TO BE WORKING HARD TO BREATH. BP STABLE. TELE SHOWING SR 90'S W PVC'S. PT REPORTING MINOR PAIN IN HIS L THIGH WHICH IS UNCHANGED FROM THE PREVIOUS NIGHT. WCTM
[2021-05-03 04:33] LABS: Hematocrit 26.4 % (37.0-53.0); Hemoglobin 8.7 g/dL (13.5-17.5)
[2021-05-03 04:54] LABS: Albumin, Blood 2.5 g/dL (3.4-5.0); Anion Gap 5 mmol/L (6-16); Blood Urea Nitrogen 40 mg/dL (8-24); Bun/Creatinine Ratio 28.2 (12.0-20.0); CO2, Blood 35 mmol/L (21-32); Calcium, Blood 9.2 mg/dL (8.5-10.1); Chloride, Blood 98 mmol/L (98-108); Creatinine, Blood 1.42 mg/dL (0.60-1.20); Glomerular Filtration Rate 49 (60-); Glucose, Blood 99 mg/dL (70-99); Magnesium, Blood 2.2 mg/dL (1.6-2.4); Phosphorus, Blood 4.4 mg/dL (2.5-4.9); Potassium, Blood 4.8 mmol/L (3.5-5.5); Sodium, Blood 138 mmol/L (136-145)
--- NOTE | 2021-05-03 06:11 | NUR ---
YARN SPINNER SUMMARY PT IS AXO X4 AND COMMUNICATING APPROPRIATELY. NO MAJOR CHANGES THIS SHIFT THE PT SLEPT COMFORTABLY FOR MOST OF THE SHIFT W O2 SATS >92% ON 2L NC. BP WNL AND STABLE. TELE SHOWING SR IN THE 70'S. PT AFEBRILE. WILL REPORT TO ONCOMING RN.
[2021-05-03] MEDS ORDERED: FURO40 PO (11:11)
[2021-05-03] MEDS ORDERED: OXYC5 PO (11:11)
[2021-05-03] MEDS ORDERED: NIFE30ER PO (11:11)
[2021-05-03] MEDS ORDERED: LOKELMA PO (11:13)
--- NOTE | 2021-05-03 14:43 | NUR ---
DISCHARGE: PT CONTINUES A&Ox4, MAINTAINING O2 SATS >92% ON 2L/MIN NC, SR ON MONITOR. PT CLEARED FOR DISCHARGE, HOME O2 EVAL COMPLETED, [facility] STAFF ARRIVES TO BEDSIDE PROVIDING EQUIPMENT FOR HOME USE. IV ACCESS DC'd WNL. PT AND SPOUSE PROVIDED WITH DISCHARGE PAPERWORK AND INSTRUCTIONS. PT ESCORTED FROM UNIT VIA W/C TO WAITING VEHICLE IN [facility].
--- NOTE | 2021-05-03 17:41 | NUR ---
theraputic visit with patient.
== END 2021-05-03 14:55 | disposition home health service (06) | DRG 871 ==
LOC: ER 11:43 → MEDS 16:50 → PCU 16:50 → ICUE 16:50 → MEDS 16:51 → ICUE 04-17 12:45 → PCU 04-29 16:56
PROVIDERS: Family Medicine; Internal Medicine; Internal Medicine Critical Care Medicine; Internal Medicine Nephrology; ADMIT Family Medicine
PROC: 3E03329 Introduction of Other Anti-infective into Peripheral Vein, Percutaneous Approach (ICD-10-PCS; principal; 2021-04-14)
PROC: 8E0ZXY6 Isolation (ICD-10-PCS; 2021-04-14)
PROC: 3E0333Z Introduction of Anti-inflammatory into Peripheral Vein, Percutaneous Approach (ICD-10-PCS; 2021-04-14)
DX: A41.89 Other specified sepsis (principal); J96.01 Acute respiratory failure with hypoxia; U07.1 COVID-19; J12.82 Pneumonia due to coronavirus disease 2019; C91.10 Chronic lymphocytic leukemia of B-cell type not having achieved remission; E87.2 Acidosis; N17.9 Acute kidney failure, unspecified; E78.00 Pure hypercholesterolemia, unspecified; Z28.21 Immunization not carried out because of patient refusal; E83.39 Other disorders of phosphorus metabolism; E83.42 Hypomagnesemia; F32.A Depression, unspecified; E87.5 Hyperkalemia; D63.1 Anemia in chronic kidney disease; E21.3 Hyperparathyroidism, unspecified; K21.9 Gastro-esophageal reflux disease without esophagitis; N18.30 Chronic kidney disease, stage 3 unspecified; I25.10 Atherosclerotic heart disease of native coronary artery without angina pectoris; Z86.73 Personal history of transient ischemic attack (TIA), and cerebral infarction without residual deficits; Z90.89 Acquired absence of other organs; Z88.1 Allergy status to other antibiotic agents; Z88.8 Allergy status to other drugs, medicaments and biological substances; Z79.82 Long term (current) use of aspirin; Z79.899 Other long term (current) drug therapy
CPT/HCPCS: 0241U; 36415; 71045; 71260; 76770; 80048; 80053; 80069; 80076; 81050; 83605; 83735; 84100; 84132; 84145; 84156; 84550; 85007; 85014; 85018; 85025; 85027; 87040; 87070; 87106; 87205; 94640; 94660; 94664; 94760; 94761; 94762; 96365-59; 96375-59; 97110; 97116; 97162; 97166; 97530; 99285-25; A9270; C1751; J0289; J0610; J0692; J0696; J0881; J1200; J1644; J1650; J1815; J1885; J1940; J1956; J2020; J2405; J2550; J2765; J2920; J2930; J3010; J3465; J7030; J7042; J7060; J7070; J7120; Q9967

== ENCOUNTER → 2021-04-14 | Outpatient (CLI) | payer OTHER ==
[~2021-04-14] MED LIST changes: +ALBU2.5V5; +BUDESONIDE EC3 M5 PO; +LEVOFLOXACIN750 MG
[2021-04-14 10:05] LABS: Hematocrit 33.1 % (37.0-53.0); Mean Corpuscular HGB 28.9 pg (26.0-34.0); Mean Corpuscular HGB Conc 33.2 g/dL (31.5-36.5); Mean Corpuscular Volume 87 fL (80-100); Mean Platelet Volume 10.8 fL (9.1-12.4); Platelet Count 367 K/mm3 (150-400); RDW Coefficient Variation 14.7 % (11.7-14.2); RDW Standard Deviation 47.3 fL (35.1-46.3); White Blood Cell Count 19.77 K/mm3 (4.00-11.30)
[2021-04-14 10:15] LABS: Albumin, Blood 1.8 g/dL (3.4-5.0); Albumin/Globulin Ratio 0.6 (0.8-1.8); Bilirubin, Total 2.6 mg/dL (0.1-1.0); Calcium, Blood 8.2 mg/dL (8.5-10.1); Creatinine, Blood 1.72 mg/dL (0.60-1.20); Globulin, Blood 2.8 g/dL (2.2-4.0); Potassium, Blood 5.4 mmol/L (3.5-5.5); Total Protein, Blood 4.6 g/dL (6.4-8.2)
[2021-04-14 10:34] LABS: BAND PERCENT MAN 28 % (0-8); BASOPHILS PERCENT MAN 0 % (0-2); EOSINOPHILS PERCENT MAN 0 % (0-6); LYMPHOCYTES PERCENT MAN 40 % (21-46); METAMYELOCYTE ABSOLUTE MAN 0.19 K/mm3 (0.00-0.00); METAMYELOCYTE PERCENT MAN 1 % (0-0); MONOCYTES PERCENT MAN 0 % (4-13); NEUTROPHILS ABSOLUTE MAN 11.66 K/mm3 (1.96-9.15); SEG NEUTROPHILS PERCENT MAN 31 % (41-73); TOTAL CELLS COUNTED 100
== END | disposition home or self-care (01) ==
LOC: LAB SHORT 09:58
PROVIDERS: Physician Assistant
DX: R09.02 Hypoxemia (principal)
CPT/HCPCS: 80053; 85025; 85379

== ENCOUNTER 2021-05-24 13:27 | Observation (INO) | payer OTHER ==
[~2021-05-24] VITALS: Ht 167.6 cm; Wt 65.5 kg
[~2021-05-24 13:27] MED LIST changes: +ALBU2.5V5 INH; +BUDESONIDE EC3 M5 PO; +FURO40 PO; +LEVOFLOXACIN750 MG; +LOKELMA PO; +MORP15ER PO; +NIFE30ER PO
[2021-05-24 13:55] LABS: BASOPHILS ABSOLUTE AUTO 0.15 K/mm3 (0.00-0.23); BASOPHILS PERCENT AUTO 1 % (0-2); EOSINOPHILS ABSOLUTE AUTO 0.13 K/mm3 (0.00-0.68); EOSINOPHILS PERCENT AUTO 1 % (0-6); Hematocrit 39.7 % (37.0-53.0); Hemoglobin 12.4 g/dL (13.5-17.5); IMMATURE GRAN ABSOLUTE AUTO 0.66 K/mm3 (0.00-0.10); IMMATURE GRAN PERCENT AUTO 4 % (0-1); LYMPHOCYTES ABSOLUTE AUTO 5.96 K/mm3 (0.84-5.20); LYMPHOCYTES PERCENT AUTO 34 % (21-46); MONOCYTES ABSOLUTE AUTO 1.38 K/mm3 (0.16-1.47); MONOCYTES PERCENT AUTO 8 % (4-13); Mean Corpuscular HGB 29.7 pg (26.0-34.0); Mean Corpuscular HGB Conc 31.2 g/dL (31.5-36.5); Mean Corpuscular Volume 95 fL (80-100); Mean Platelet Volume 10.6 fL (9.1-12.4); NEUTROPHILS PERCENT AUTO 53 % (41-73); Platelet Count 428 K/mm3 (150-400); RDW Coefficient Variation 16.4 % (11.7-14.2); RDW Standard Deviation 56.7 fL (35.1-46.3); Red Blood Cell Count 4.17 M/mm3 (4.30-5.90); White Blood Cell Count 17.48 K/mm3 (4.00-11.30)
[2021-05-24 14:06] LABS: Albumin/Globulin Ratio 0.8 (0.8-1.8); Bilirubin, Total 0.3 mg/dL (0.1-1.0); Bun/Creatinine Ratio 16.9 (12.0-20.0); Calcium, Blood 8.6 mg/dL (8.5-10.1); Creatinine, Blood 1.36 mg/dL (0.60-1.20); Globulin, Blood 3.6 g/dL (2.2-4.0); Potassium, Blood 5.3 mmol/L (3.5-5.5); Total Protein, Blood 6.6 g/dL (6.4-8.2)
[2021-05-24 14:43] LABS: BAND PERCENT MAN 2 % (0-8); BASOPHILS PERCENT MAN 0 % (0-2); EOSINOPHILS ABSOLUTE MAN 0.17 K/mm3 (0.00-0.68); EOSINOPHILS PERCENT MAN 1 % (0-6); LYMPHOCYTES ABSOLUTE MAN 4.19 K/mm3 (0.84-5.20); LYMPHOCYTES PERCENT MAN 24 % (21-46); MONOCYTES ABSOLUTE MAN 1.57 K/mm3 (0.16-1.47); MONOCYTES PERCENT MAN 9 % (4-13); MYELOCYTE ABSOLUTE MAN 0.34 K/mm3 (0.00-0.00); MYELOCYTE PERCENT MAN 2 % (0-0); NEUTROPHILS ABSOLUTE MAN 11.18 K/mm3 (1.96-9.15); SEG NEUTROPHILS PERCENT MAN 62 % (41-73); TOTAL CELLS COUNTED 100
--- NOTE | 2021-05-25 06:01 | NUR ---
Shift Summary New admission from ER. Patient denied CP on admission to floor and throughout the night, only c/o left arm pain unchanged from earlier and did not request pain medications. Patient a/0x4, oriented to room, on 2L NC. No change in condition.
--- NOTE | 2021-05-25 19:34 | NUR ---
SHIFT SUMMARY PATIENT IS ALERT AND ORIENTED X4, PLEASANT AND COOPERATIVE WITH CARE. ON 3LPM OF O2 VIA NASAL CANNULA. INDEPENDENT IN THE ROOM. PATIENT IS AWAITING THE READ OF THEIR ECHO. POSSIBLE DISCHARGE TOMORROW. NO EVENTS ON TELE. VSS. BED I LOWEST POSITION, CALL LIGHT WITHIN REACH.
--- NOTE | 2021-05-26 05:18 | NUR ---
SHIFT SUMMARY 70 Y MALE ADMITTED FOR CP. PT USES 2L HOME O2 AND IS CURRENTLY ON 3.5L VIA N/C. PT HAS BEEN A&O AND COOPERATIVE WITH CARE. PT HAS EXPRESSED FRUSTRATION WITH NOT GETTING RESULTS OF ECHO TODAY AND INDICATED HE WANTED TO LEAVE AMA. THIS RN DISCUSSED COMPLAINTS WITH PT AND HE AGREES TO WAIT UNTIL AM TO SEE PROVIDER FOR ECHO RESULTS AND IS HOPEFULL TO D/C HOME IN AM. PT ALSO HAS HX OF COPD AND RECENT COVID RECOVERY. NO OTHER CHANGES TO REPORT THIS SHIFT.
--- NOTE | 2021-05-26 12:32 | NUR ---
Patient is a [facility] patient who was transferred to [facility] on 05/24/2021 due to chest pain. Patient now has discharge orders with resumption of home health orders. Gathered supporting documentation for resumption (face sheet, discharge order, med list, and H&P) and faxed to [facility] for review. No further interventions required. Bridgette Esquivel Referral Liaison
--- NOTE | 2021-05-26 14:01 | NUR ---
DISCHARGE NOTE THE PATIENT DISCHARGED VIA WHEELCHAIR WITH SPOUSE AND EBONY SURESH. IV WAS DC'D PATIENT VERBALIZED UNDERSTANDING OF DISCHARGE INSTRUCTIONS GIVEN. VSS. NOTHING FURTHER TO REPORT.
== END 2021-05-26 13:15 | disposition home or self-care (01) ==
LOC: ER 13:27 → MEDS 18:23
PROVIDERS: Student in an Organized Health Care Education/Training Program; ADMIT Internal Medicine
DX: R07.89 Other chest pain (principal); K21.9 Gastro-esophageal reflux disease without esophagitis; J96.11 Chronic respiratory failure with hypoxia; U09.9 Post COVID-19 condition, unspecified; C91.10 Chronic lymphocytic leukemia of B-cell type not having achieved remission; I12.9 Hypertensive chronic kidney disease with stage 1 through stage 4 chronic kidney disease, or unspecified chronic kidney disease; N18.30 Chronic kidney disease, stage 3 unspecified; Z87.81 Personal history of (healed) traumatic fracture; D64.9 Anemia, unspecified; Z88.1 Allergy status to other antibiotic agents; Z91.041 Radiographic dye allergy status
CPT/HCPCS: 36415; 71045; 80053; 84484; 85025; 93005; 93010; 93306; 99285-25; A9270; J1650

== ENCOUNTER → 2021-06-09 | Outpatient (CLI) | payer OTHER ==
[2021-06-09 11:25] LABS: BASOPHILS ABSOLUTE AUTO 0.13 K/mm3 (0.00-0.23); BASOPHILS PERCENT AUTO 1 % (0-2); EOSINOPHILS ABSOLUTE AUTO 0.29 K/mm3 (0.00-0.68); EOSINOPHILS PERCENT AUTO 2 % (0-6); Hematocrit 34.1 % (37.0-53.0); Hemoglobin 11.2 g/dL (13.5-17.5); IMMATURE GRAN ABSOLUTE AUTO 0.17 K/mm3 (0.00-0.10); IMMATURE GRAN PERCENT AUTO 1 % (0-1); LYMPHOCYTES ABSOLUTE AUTO 3.17 K/mm3 (0.84-5.20); LYMPHOCYTES PERCENT AUTO 21 % (21-46); MONOCYTES ABSOLUTE AUTO 1.83 K/mm3 (0.16-1.47); MONOCYTES PERCENT AUTO 12 % (4-13); Mean Corpuscular HGB 29.9 pg (26.0-34.0); Mean Corpuscular HGB Conc 32.8 g/dL (31.5-36.5); Mean Corpuscular Volume 91 fL (80-100); NEUTROPHILS ABSOLUTE AUTO 9.39 K/mm3 (1.96-9.15); NEUTROPHILS PERCENT AUTO 63 % (41-73); Platelet Count 437 K/mm3 (150-400); RDW Coefficient Variation 14.8 % (11.7-14.2); RDW Standard Deviation 49.3 fL (35.1-46.3); Red Blood Cell Count 3.75 M/mm3 (4.30-5.90); White Blood Cell Count 14.98 K/mm3 (4.00-11.30)
[2021-06-09 11:41] LABS: Albumin, Blood 2.7 g/dL (3.4-5.0); Albumin/Globulin Ratio 0.9 (0.8-1.8); Bilirubin, Total 0.2 mg/dL (0.1-1.0); Bun/Creatinine Ratio 14.8 (12.0-20.0); Calcium, Blood 8.7 mg/dL (8.5-10.1); Creatinine, Blood 1.28 mg/dL (0.60-1.20); Globulin, Blood 3.1 g/dL (2.2-4.0); Potassium, Blood 4.9 mmol/L (3.5-5.5); Total Protein, Blood 5.8 g/dL (6.4-8.2)
== END | disposition home or self-care (01) ==
LOC: LAB 11:19 → LAB SHORT 11:19
PROVIDERS: Physician Assistant
DX: R06.00 Dyspnea, unspecified (principal)
CPT/HCPCS: 80053; 83880; 84484; 85025

== ENCOUNTER → 2022-05-09 | Outpatient (CLI) | payer OTHER | END | disposition home or self-care (01) | LOC: LAB SHORT 10:59 → LAB 10:59 | DX: R50.9 Fever, unspecified (principal) | CPT/HCPCS: 87070; 87205 ==

== ENCOUNTER → 2022-05-09 | Outpatient (CLI) | payer OTHER ==
[2022-05-09 10:08] LABS: BASOPHILS ABSOLUTE AUTO 0.26 K/mm3 (0.00-0.23); BASOPHILS PERCENT AUTO 1 % (0-2); EOSINOPHILS ABSOLUTE AUTO 0.38 K/mm3 (0.00-0.68); EOSINOPHILS PERCENT AUTO 1 % (0-6); Hematocrit 43.1 % (37.0-53.0); Hemoglobin 14.4 g/dL (13.5-17.5); Mean Corpuscular HGB 29.4 pg (26.0-34.0); Mean Corpuscular HGB Conc 33.4 g/dL (31.5-36.5); Mean Corpuscular Volume 88 fL (80-100); Platelet Count 234 K/mm3 (150-400); RDW Coefficient Variation 14.4 % (11.7-14.2); RDW Standard Deviation 45.8 fL (35.1-46.3); Red Blood Cell Count 4.89 M/mm3 (4.30-5.90)
[2022-05-09 10:09] LABS: IMMATURE GRAN ABSOLUTE AUTO 0.16 K/mm3 (0.00-0.10); IMMATURE GRAN PERCENT AUTO 0 % (0-1); LYMPHOCYTES ABSOLUTE AUTO 26.32 K/mm3 (0.84-5.20); LYMPHOCYTES PERCENT AUTO 56 % (21-46); MONOCYTES ABSOLUTE AUTO 9.73 K/mm3 (0.16-1.47); MONOCYTES PERCENT AUTO 21 % (4-13); NEUTROPHILS ABSOLUTE AUTO 9.95 K/mm3 (1.96-9.15); NEUTROPHILS PERCENT AUTO 21 % (41-73)
[2022-05-09 10:25] LABS: Albumin/Globulin Ratio 1.3 (0.8-1.8); Bilirubin, Total 0.5 mg/dL (0.1-1.0); Creatinine, Blood 1.72 mg/dL (0.60-1.20); Globulin, Blood 3.1 g/dL (2.2-4.0); Potassium, Blood 5.1 mmol/L (3.5-5.5); Total Protein, Blood 7.1 g/dL (6.4-8.2)
[2022-05-09 11:04] LABS: BASOPHILS ABSOLUTE MAN 0.46 K/mm3 (0.00-0.23); BASOPHILS PERCENT MAN 1 % (0-2); EOSINOPHILS PERCENT MAN 0 % (0-6); LYMPHOCYTES % ATYPICAL MANUAL 5 % (0-0); LYMPHOCYTES ABSOLUTE MAN 31.82 K/mm3 (0.84-5.20); LYMPHOCYTES PERCENT MAN 63 % (21-46); MONOCYTES ABSOLUTE MAN 7.02 K/mm3 (0.16-1.47); MONOCYTES PERCENT MAN 15 % (4-13); NEUTROPHILS ABSOLUTE MAN 7.48 K/mm3 (1.96-9.15); SEG NEUTROPHILS PERCENT MAN 16 % (41-73); TOTAL CELLS COUNTED 100
== END | disposition home or self-care (01) ==
LOC: LAB SHORT 10:03 → LAB 10:03
PROVIDERS: Emergency Medicine
DX: R50.9 Fever, unspecified (principal)
CPT/HCPCS: 80053; 85025

== ENCOUNTER → 2024-12-16 | Outpatient (CLI) | payer OTHER, BC ==
[2024-12-16 09:22] LABS: BASOPHILS ABSOLUTE AUTO 0.07 K/mm3 (0.00-0.23); BASOPHILS PERCENT AUTO 1 % (0-2); EOSINOPHILS ABSOLUTE AUTO 0.13 K/mm3 (0.00-0.68); EOSINOPHILS PERCENT AUTO 1 % (0-6); Hematocrit 40.6 % (37.0-53.0); Hemoglobin 13.7 g/dL (13.5-17.5); IMMATURE GRAN ABSOLUTE AUTO 0.03 K/mm3 (0.00-0.10); IMMATURE GRAN PERCENT AUTO 0 % (0-1); LYMPHOCYTES ABSOLUTE AUTO 2.57 K/mm3 (0.84-5.20); LYMPHOCYTES PERCENT AUTO 19 % (21-46); MONOCYTES ABSOLUTE AUTO 1.44 K/mm3 (0.16-1.47); MONOCYTES PERCENT AUTO 11 % (4-13); Mean Corpuscular HGB Conc 33.7 g/dL (31.5-36.5); Mean Corpuscular Volume 89 fL (80-100); NEUTROPHILS ABSOLUTE AUTO 9.37 K/mm3 (1.96-9.15); NEUTROPHILS PERCENT AUTO 69 % (41-73); NRBC ABSOLUTE 0.00 K/mm3 (0.00-0.02); NRBC Auto 0.0 /100 WBC (0.0-0.2); Platelet Count 195 K/mm3 (150-400); RDW Coefficient Variation 13.2 % (11.7-14.2); RDW Standard Deviation 42.8 fL (35.1-46.3)
[2024-12-16 09:41] LABS: Alanine Aminotransfer (ALT/SGP 29.0 U/L (12-78); Albumin, Blood 3.8 g/dL (3.4-5.0); Albumin/Globulin Ratio 1.2 (0.8-1.8); Anion Gap 13.0 mmol/L (3-11); Aspartate Aminotrans (AST/SGOT 24.0 U/L (12-37); Bilirubin, Total 0.7 mg/dL (0.1-1.0); Blood Urea Nitrogen 19.0 mg/dL (8-24); CO2, Blood 27.0 mmol/L (21-32); Calcium, Blood 9.2 mg/dL (8.5-10.1); Chloride, Blood 104.0 mmol/L (98-108); Creatinine, Blood 1.52 mg/dL (0.60-1.20); Globulin, Blood 3.1 g/dL (2.2-4.0); Glucose, Blood 138.0 mg/dL (70-99); Potassium, Blood 4.7 mmol/L (3.5-5.5); Sodium, Blood 139.0 mmol/L (136-145); Thyroid Stimulating Hormone 1.395 uIU/mL (0.360-4.800); Total Protein, Blood 6.9 g/dL (6.4-8.2)
== END | disposition home or self-care (01) ==
LOC: LAB 09:18 → LAB SHORT 09:18
PROVIDERS: Chiropractor
DX: R22.1 Localized swelling, mass and lump, neck (principal)
CPT/HCPCS: 80053; 84443; 85025